=== PATIENT | male | born 1965 | race African-American/Black ===

== ENCOUNTER 2017-06-04 16:43 | Inpatient (IN) | payer SELFPAY ==
--- NOTE | 2017-06-04 17:30 | CT ---
CT HEAD NONCONTRAST: Indication: altered mental status, stroke like symptoms. FINDINGS: There is a prominent sized parenchymal hematoma of the left basal ganglia region. There is slight deg ree of rightward midline shift on the basis of a few mm with effacement of the left lateral ventricle . IMPRESSION: Acute parenchymal hematoma centered at the left basal ganglia, likely related to a hypertensive hemor rhage. Telephone called placed to Kal Bell at 1710 hours, 06-04-17. POS: [facility]
[2017-06-04] MEDS ORDERED: niCARdipine HCl 25 MG in Sodium Chloride 0.9% 250 ML 240 ML IVPB SCH (17:45)
[2017-06-04 17:50] LABS: Mean Corpuscular HGB CONC 33.2 g/dL (32.0-36.0); Mean Corpuscular Volume 99.4 fl (80.0-94.0); Platelet Count 183 thou/uL (130-400); RBC Distribution Width 12.4 % (11.5-14.5); Red Blood Cell (RBC) Count 4.53 mill/uL (4.70-6.10); White Blood Cell (WBC) Count 13.1 thou/uL (4.8-10.8)
[2017-06-04 17:56] LABS: PTT 29.5 SEC (22.9-36.1); Prothrombin Time 13.6 SEC (12.0-14.7)
[2017-06-04] MEDS ORDERED: niCARdipine 20MG in NaCl 200 ML BAG IVPB PRN (18:00)
[2017-06-04] MEDS ORDERED: Ondansetron HCl/PF 4 MG/2 ML Vial IVP PRN (18:00)
[2017-06-04] MEDS ORDERED: Acetaminophen 650 MG Suppository PR PRN (18:04)
[2017-06-04] MEDS ORDERED: Morphine 4 MG/ML Carpuject SLOW IVP PRN (18:04)
[2017-06-04 18:06] LABS: Band 6 % (5-11); Lymphocytes 11 % (21-51); MDiff Complete? YES; Monocytes 6 % (0-10); Neutrophil 77 % (42-75); PLT Morphology Comment Appears Adequate; RBC Morphology Normal
[2017-06-04 18:19] LABS: CKMB 3.6 ng/mL (0-6.6); Troponin I 0.013 ng/mL (< 0.028)
--- NOTE | 2017-06-04 18:38 | PDOC.PN ---
- Subjective Encounter Start Date: 06/04/17 Encounter Start Time: 18:00 -: non-verbal Patient is seen in the ER, asked by Dr. Salmon, PATIENT presented with intraparenchymal bled rt pareital area, patient was found unconsiuous at home with urinary and bowel incontinenece today around 3 pM when checked by his Cousin, Patient has knonw h/o Alchol abuse and did drink a bottle of beer, he has h/o HTN but doesnt take them regularly, Discussed with Daughters and sister at bedside. 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 - Objective MAR Reviewed: Yes Result Diagrams: 06/04/17 17:44 Radiology Reviewed by me: Yes (Right parenchymal bleed) EKG Reviewed by me: Yes Phys Exam - Physical Examination HEENT: PERRLA, moist MMs, sclera anicteric Pt has Tounge deviation to Right side when protruded. Neck: no nodes, no JVD Respiratory: no wheezing, no rales, clear to auscultation bilateral Cardiovascular: RRR, no significant murmur Gastrointestinal: soft, non-tender Musculoskeletal: no edema, pulses present Focal deficits noted in 12th cranial never Toung deviation to right, Psychiatric: normal affect Skin: no rash Dx/Plan (1) Seizure in response to acute event Code(s): R56.9 - UNSPECIFIED CONVULSIONS Status: Acute Comment: Patient seizure is from bleed, will Start Prophylactic Kepra 500mg BID, and Recommand Consulting Neurology. seizure likely from Bleed or He could have withdrawl seizures from Alchol. pt on Ativan for seizures. (2) Alcohol abuse Code(s): F10.10 - ALCOHOL ABUSE, UNCOMPLICATED Status: Acute Comment: Will start patient on Thiamine 100mg IV daily and folic acid 1 mg IV daily (3) Acute intracerebral hemorrhage Code(s): I61.9 - NONTRAUMATIC INTRACEREBRAL HEMORRHAGE, UNSPECIFIED Status: Acute Comment: Patient is managed by Dr. Salmon from Neurosurgery, plan to Repeat CT in Am. (4) Uncontrolled hypertension Code(s): I10 - ESSENTIAL (PRIMARY) HYPERTENSION Status: Acute Comment: Pt is started on nicardipine Drip to keep Systolic >160 < 180 (5) Acute encephalopathy Code(s): G93.40 - ENCEPHALOPATHY, UNSPECIFIED Status: Acute Comment: Likely from Stroke/ Alchol wihtdrawl. (6) Aphasia Code(s): R47.01 - APHASIA Status: Acute Comment: Will need Spech evalaution and keep pt NPO, high risk for Aspiration. - Plan cont current plan of care, plan discussed w/ family, speech therapy, DVT proph w /SCDs * . - Discharge Day Encounter end time: 18:50 (45 min of Critical care time) Review of Systems - Review of Systems Constitutional: negative: fever, chills, sweats, weakness, malaise, other Eyes: negative: Pain, Vision Change, Conjunctivae Inflammation, Eyelid Inflammation, Redness, Other ENT: negative: Ear Pain, Ear Discharge, Nose Pain, Nose Discharge, Nose Congestion, Mouth Pain, Mouth Swelling, Throat Pain, Throat Swelling, Other Respiratory: negative: Cough, Dry, Shortness of Breath, Hemoptysis, SOB with Excertion, Pleuritic Pain, Sputum, Wheezing Cardiovascular: negative: chest pain, palpitations, orthopnea, paroxysmal nocturnal dyspnea, edema, light headedness, other Musculoskeletal: negative: Neck Pain, Shoulder Pain, Arm Pain, Back Pain, Hand Pain, Leg Pain, Foot Pain, Other Neurological: Incoordination, Change in Speech, Confusion - Medications/Allergies Allergies/Adverse Reactions: Allergies Allergy/AdvReac Type Severity Reaction Status Date / Time No Known Allergies Allergy Unverified 06/04/17 17:32 Medications: Current Medications Acetaminophen (Tylenol) 650 mg TN Q4H PRN PRN Reason: Headache/Fever or Pain Famotidine (Pepcid) 20 mg SLOW IVP Q12HR YARED Sodium Chloride (Normal Saline 0.9%) 1,000 mls @ 80 mls/hr IV .[id number] YARED Nicardipine HCl 25 mg/ Sodium (Chloride) 250 mls @ 0 mls/hr IVPB INF PRN; Protocol; Titrate PRN Reason: For SBP > 150 or DBP > 90 Labetalol HCl (Normodyne) 10 mg SLOW IVP Q2H PRN PRN Reason: SBP > 150 or DBP > 90 Morphine Sulfate (Morphine) 2 mg SLOW IVP Q4H PRN PRN Reason: Pain Ondansetron HCl (Zofran) 4 mg IVP BIDPRN PRN PRN Reason: Nausea/Vomiting Sodium Chloride (Flush - Normal Saline) 10 ml IVF PRN PRN PRN Reason: Saline Flush
[2017-06-04] MEDS ORDERED: Lorazepam 2 MG/ML VIAL ONE (19:07)
--- NOTE | 2017-06-04 19:07 | RAD ---
PORTABLE AP CHEST RADIOGRAPH: Date: 06-04-17 History: Altered mental status. FINDINGS: Cardiac silhouette and pulmonary vasculature are within normal limits for portable technique. Broncho vascular markings are accentuated by shallow depth of inspiration and portable technique. Lungs are o therwise clear. Osseous structures are intact. IMPRESSION: No acute cardiopulmonary process. POS: [facility]
[2017-06-04 19:14] LABS: Albumin 4.6 g/dL (3.5-5.0)
[2017-06-04 19:15] LABS: Calcium 10.8 mg/dL (7.8-10.44); Chloride 101 mmol/L (98-107); Potassium 3.6 mmol/L (3.5-5.1); Sodium 143 mmol/L (136-145)
[2017-06-04 19:16] LABS: Glucose 126 mg/dL (70-105); Protein, Total 8.6 g/dL (6.0-8.3)
[2017-06-04 19:17] LABS: Anion Gap 25 mmol/L (10-20); Carbon Dioxide 21 mmol/L (22-29)
[2017-06-04 19:18] LABS: Bilirubin, Total 1.6 mg/dL (0.2-1.2)
[2017-06-04 19:19] LABS: Alcohol Less than 10 mg/dL (Less than 10); Alkaline Phosphatase 68 U/L (40-150); Calc. Creatinine Clearance 0 mL/min (70-130); Estimated GFR-MDRD Greater than 90
[2017-06-04 19:21] LABS: AST (SGOT) 57 U/L (5-34); BUN (Urea Nitrogen) 13 mg/dL (8.4-25.7)
[2017-06-04 19:22] LABS: ALT (SGPT) 41 U/L (8-55); Acetaminophen Less than 6.0 mcg/mL (10.0-30.0); CK (CPK) 739 U/L (30-200); Salicylate Less than 8.0 mg/dL (15.0-30.0)
[2017-06-04] MEDS: Sodium Chloride 0.9% 1,000 ML IV SCH (20:00)
[2017-06-04] MEDS: Famotidine/PF 20 mg/2ml Vial SLOW IVP SCH (20:31)
--- NOTE | 2017-06-04 20:52 | ER ---
DATE OF SERVICE: 06/04/2017 Please refer the patient's electronic medical record for further details of his visit. In summary, the patient was found unresponsive with difficulty moving and standing by a family member earlier this afternoon. He was last seen normal yesterday by another family member, and spoke on th e phone early this morning and sounded to be in his usual state of health at that time. His family r eports no recent illness or medical issues. He stated that he has a chronic alcoholic. He has a history of 1 seizure approximately 1-2 years ago, with no witnessed seizure activity today. The patient has had difficulty moving his right upper and lower extremities, and was found with emes is on the floor around him. He did not vomit while in the emergency department. On my evaluation, the patient is awake and alert, unable to answers questions beyond yes and no quest ions. He has garbled speech with expressive aphasia, but answers yes when asked if he understands wh at is going on. He is able to follow some simple commands, though has difficulty with more complex i nstructions. The patient was mildly hypertensive on arrival, and plan to treat his blood pressure with an IV Carde ne drip. CT scanning reveals intraparenchymal hemorrhage on the left with minimal midline shift. I discussed this case with JULES Mckenzie, of the Neurosurgical Service, who agrees with plan for ICU admiss ion. The patient is in guarded condition at the time of admission. His family is aware of findings and plan, all the questions have been answered at this point. He is protecting his airway and does n ot require intubation at this time. He is not taking any blood thinners. His prognosis is quite gua rded.
[2017-06-04] MEDS: niCARdipine HCl 25 MG in Sodium Chloride 0.9% 250 ML 240 ML IVPB PRN (20:54)
[2017-06-04 22:11] LABS: Lactic Acid 1.3 mmol/L (0.5-2.2)
--- NOTE | 2017-06-04 22:13 | HP ---
ATTENDING PHYSICIAN: Jigar Salmon MD HISTORY OF PRESENT ILLNESS: The patient is a 52-year-old -[place] male with a past medical history of alcoholism, hypertension non compliant with medications who presented to the emergency department per EMS after being found down by his family at 1500 hours today. Family reports that they spoke to him earlier this morning around 7:00 a.m. and he sounded normal at that time. At noon, family members attempted to go by his home, but the patient did not answer the door or the phone. They were able to get into his home around 1500 hours with a marroquin from another family member, which is when they found the patient down. It is unknown how long the patient had been down. The patient had thrown up nearby where he was found down. He was found to have right-sided weakness upon the family's arrival as well as slurred speech. The family contacted EMS and the patient was brought to the emergency department for further evaluation. CT head was done on arrival, which revealed a moderate- sized right-sided intraparenchymal hemorrhage with a small amount of midline shift from left to right. Therefore, the Neurosurgery Service was consulted. I saw the patient in the emergency department at the bedside. He was oriented to person, place, time; although he had slurred speech. Left-sided facial droop was appreciated on my exam. His pupils were equal and reactive to light. He had weakness to the right upper and right lower extremities. His vital signs were stable, although blood pressure was elevated at 155/110 while I was in the room. PAST MEDICAL HISTORY: Alcoholism with history of alcohol-related seizure in the past, hypertension, noncompliant on medication. FAMILY HISTORY: Noncontributory. SOCIAL HISTORY: The patient lives at home. Known alcoholism. ALLERGIES: The patient has no known drug allergies. REVIEW OF SYSTEMS: Per HPI. PHYSICAL EXAMINATION: VITAL SIGNS: Heart rate was 115, blood pressure 155/110, respiratory rate is 20 , temperature 100.1 Fahrenheit. CONSTITUTIONAL: The patient was awake, alert, following commands. HEAD: Normocephalic and atraumatic. Left-sided facial droop was appreciated. EYES: PERRLA. Extraocular movements are intact. No gaze deviation was appreciated. ENT: Oral mucosa pink, intact, and moist. NECK: Supple, nontender to palpation. No meningismus or nuchal rigidity. CARDIAC: Regular rate and rhythm. LUNGS: The patient was breathing comfortably with symmetric chest expansion. No evidence of dyspnea. MUSCULOSKELETAL: The patient has good muscle tone to bilateral upper and lower extremities. No obvious deformities. Peripheral pulses were symmetric. NEUROLOGIC: The patient is A and O x4. Left-sided facial droop. Expressive aphasia. Right upper extremity weakness with flaccid paralysis. Right lower extremity weakness, 3/5. ASSESSMENT: Acute intraparenchymal hemorrhage, likely related to alcoholism and elevated blood pressure. PLAN: We will plan to admit to the ICU with q.1 hour neuro checks. Head of the bed will be elevated to 30 degrees. We will begin a Cardene drip and titrate to a systolic blood pressure of less than 140 as the goal. We will plan to repeat head CT in the morning for further evaluation. I have discussed this plan with the hospitalist and they will also assist with medical management. I have also discussed this plan with Dr. Salmon who is in agreement. Please reach out to Neurosurgery Service for additional questions or concerns. STEFANIA
[2017-06-05] MEDS: niCARdipine HCl 25 MG in Sodium Chloride 0.9% 250 ML 240 ML IVPB PRN (00:32)
[2017-06-05 05:15] LABS: #Lymphocytes 1.3 thou/uL (1.20-3.40); #Monocytes 1.6 thou/uL (0.11-0.59); %Basophils 0.1 % (0.0-1.0); %Lymphocytes 8.9 % (21.0-51.0); %Monocytes 10.5 % (0.0-10.0); %Neutrophils 80.5 % (42.0-75.0); Hemoglobin 14.1 g/dL (14.0-18.0); Mean Corpuscular HGB CONC 34.2 g/dL (32.0-36.0); Mean Corpuscular Hemoglobin 34.3 pg (27.0-31.0); Mean Platelet Volume 8.7 fL (7.4-10.4); Platelet Count 167 thou/uL (130-400); RBC Distribution Width 12.3 % (11.5-14.5); Red Blood Cell (RBC) Count 4.12 mill/uL (4.70-6.10); White Blood Cell (WBC) Count 14.9 thou/uL (4.8-10.8)
[2017-06-05] MEDS ORDERED: niCARdipine HCl 50 MG in Sodium Chloride 0.9% 250 ML 230 ML IVPB PRN (05:15)
[2017-06-05 05:16] LABS: Anion Gap 19 mmol/L (10-20); BUN (Urea Nitrogen) 17 mg/dL (8.4-25.7); Calc. Creatinine Clearance 101 mL/min (70-130); Calcium 9.5 mg/dL (7.8-10.44); Carbon Dioxide 22 mmol/L (22-29); Chloride 106 mmol/L (98-107); Estimated GFR-MDRD 87; Glucose 104 mg/dL (70-105); Potassium 3.5 mmol/L (3.5-5.1); Sodium 143 mmol/L (136-145)
[2017-06-05] MEDS: Sodium Chloride 0.9% 1,000 ML IV SCH ×2 (07:59→10:07)
[2017-06-05] MEDS: Labetalol HCl 100 MG/20 ML VIAL SLOW IVP PRN (08:00)
[2017-06-05] MEDS ORDERED: Lidocaine Viscous Sol 2% 15 ml UD Cup ONE (08:39)
[2017-06-05] MEDS ORDERED: FLU VACC QS2017-18 36 mo. & older 0.5 ML SYRINGE IM ONE (09:00)
[2017-06-05 09:08] LABS: Bilirubin Moderate (Negative); Blood, Urine Small (Negative); Clarity CLOUDY (Clear); Glucose, Urine (Dipstick) Negative (Negative); Leukocyte Small (Negative); Nitrite Negative (Negative); Protein, Urine (Dipstick) 300 mg/dL (Neg-Trace); pH, Urine 6.5 (5.0-9.0)
[2017-06-05 09:15] LABS: Squamous Epithelial 0-3 HPF (0-3); WBC/HPF 0-3 HPF (0-3)
[2017-06-05 09:16] LABS: Bacteria/HPF 1+ HPF (None Seen); Hyaline Casts/LPF NONE SEEN LPF (0-3 Hyaline); Renal Epithelial None Seen HPF (0-3)
--- NOTE | 2017-06-05 09:29 | CT ---
PRELIMINARY REPORT/[facility]/EMERGENCY AFTER HOURS PROCEDURE: EXAM: CT Head Without Intravenous Contrast EXAM DATE/TIME: Exam ordered 06/05/2017 3:44 AM CLINICAL HISTORY: 52 years old, male; Condition or disease; Other: Hemorrhage; Patient HX: F/u intracerebral hemorrhagi c stroke TECHNIQUE: Axial computed tomography images of the head/brain without intravenous contrast. COMPARISON: CT Brain WO Con 2017-06-04 17:07 FINDINGS: Brain: Stable 5.8 cm acute left basal ganglia intraparenchymal hematoma, presumably representing a hy pertensive hemorrhage. No significant white matter disease. Midline shift: 2 mm rightward midline shift. Ventricles: Unremarkable. No ventriculomegaly. Bones/joints: Unremarkable. No acute fracture. Soft tissues: Unremarkable. Sinuses: Unremarkable as visualized. No acute sinusitis. Mastoid air cells: Unremarkable as visualized. No mastoid effusion. Other findings: Generalized volume loss. IMPRESSION: 1. Stable 5.8 cm acute left basal ganglia intraparenchymal hematoma, presumably representing a hypert ensive hemorrhage. 2. 2 mm rightward midline shift. Thank you for allowing us to participate in the care of your patient. Dictated and Authenticated by: Pérez Fitzgerald MD 06/05/2017 3:59 AM Central Time ([place] & [place]) FINAL REPORT HEAD CT WITHOUT CONTRAST: DATE: 06/05/17. COMPARISON: 06/04/17. HISTORY: Reevaluate intraaxial hemorrhage. FINDINGS: I agree with the preliminary [facility] report. There is a stable intraaxial hemorrhage measuring up to 5 .5 cm in the region of the basal ganglia on the left. There is mild [id number] midline shift lawrence uring in the 2-3 mm range. Imaged paranasal sinuses/mastoid air cells are well aerated. No displace d calvarial fracture. No new hemorrhage. IMPRESSION: Stable intraaxial hemorrhage centered in the left basal ganglia with minimal rightward midline shift. POS: [facility]
[2017-06-05] MEDS ORDERED: Lidocaine Viscous Sol 2% 15 ml UD Cup FS SCH (09:30)
[2017-06-05] MEDS: Famotidine/PF 20 mg/2ml Vial SLOW IVP SCH ×2 (10:07→20:56)
--- NOTE | 2017-06-05 12:20 | PDOC.PN ---
- Subjective Encounter Start Date: 06/05/17 Encounter Start Time: 12:19 Subjective: not able to talk.apperas sleepy -: family at bedisde.no improvement or worsening in R parasis/dysarthria - Objective MAR Reviewed: Yes Vital Signs & Weight: Vital Signs (12 hours) Temp Pulse Resp BP Pulse Ox 06/05/17 08:00 98.9 F 122 H 18 125/84 100 06/05/17 03:00 99.4 F Weight Admit Weight 194 lb 0.108 oz Weight 195 lb 5.273 oz Most Recent Monitor Data Heart Rate from ECG 98 NIBP 135/99 NIBP BP-Mean 112 Respiration from ECG 20 SpO2 100 I&O: 06/04/17 06/05/17 06/06/17 06:59 06:59 06:59 Intake Total 1129 100 Output Total 10 Balance 1129 90 Result Diagrams: 06/05/17 04:43 06/05/17 04:43 Additional Labs: Microbiology 06/04/17 17:44 Venous blood - Left Arm Blood Culture - Preliminary Specimen has been received and culture in progress. No Growth to date. 06/04/17 17:44 Venous blood - Left Arm Blood Culture - Preliminary Specimen has been received and culture in progress. No Growth to date. Phys Exam - Physical Examination Constitutional: NAD awake but sleepy HEENT: PERRLA, moist MMs, sclera anicteric, oral pharynx no lesions Neck: no JVD Respiratory: no wheezing, no rales, no rhonchi, clear to auscultation bilateral Cardiovascular: RRR, no significant murmur Gastrointestinal: soft, non-tender, no distention, positive bowel sounds Musculoskeletal: no edema, pulses present R hemiparesis,expressive aphasia,Left facial droop Psychiatric: normal affect Skin: no rash Dx/Plan (1) Acute intracerebral hemorrhage Code(s): I61.9 - NONTRAUMATIC INTRACEREBRAL HEMORRHAGE, UNSPECIFIED Status: Acute Comment: Patient is managed by Dr. Salmon from Neurosurgery, Repeat CT shows stable bleed (2) Acute encephalopathy Code(s): G93.40 - ENCEPHALOPATHY, UNSPECIFIED Status: Acute Comment: Likely from Stroke/ Alchol wihtdrawl.Improving (3) Alcohol abuse Code(s): F10.10 - ALCOHOL ABUSE, UNCOMPLICATED Status: Acute Comment: on Thiamine 100mg IV daily and folic acid 1 mg IV daily (4) Aphasia Code(s): R47.01 - APHASIA Status: Acute Comment: Spech evalaution and keep pt NPO, high risk for Aspiration. (5) Seizure in response to acute event Code(s): R56.9 - UNSPECIFIED CONVULSIONS Status: Acute Comment: Patient seizure is from bleed, will Started Prophylactic Kepra 500mg BID, and Recommand Consulting Neurology. seizure likely from Bleed or He could have withdrawl seizures from Alchol. pt on Ativan for seizures. (6) Uncontrolled hypertension Code(s): I10 - ESSENTIAL (PRIMARY) HYPERTENSION Status: Acute Comment: Off of Nicardipine drip.PRN labetalol - Plan strong catheter, PT/OT, speech therapy, respiratory therapy, DVT proph w/SCDs Stable ICH .NS following.BP improved.add daily BB etc.monitor. -: OK to transfer to stroke w tele.cont OT,PT,SALES OFFICE MANAGER eval. -: monitor for ETOH withdrawl.prophylactic Anti-seizure meds -: prn ativan,though it cam increase drowsines. -: guarded prognosis.am labs * . Review of Systems - Review of Systems Other: Unable to obtain w certainty due to Broca's aphasia - Medications/Allergies Allergies/Adverse Reactions: Allergies Allergy/AdvReac Type Severity Reaction Status Date / Time No Known Allergies Allergy Unverified 06/04/17 17:32 Medications: Current Medications Acetaminophen (Tylenol) 650 mg CA Q4H PRN PRN Reason: Headache/Fever or Pain Last Admin: 06/04/17 22:45 Dose: 650 mg Famotidine (Pepcid) 20 mg SLOW IVP Q12HR [facility] Last Admin: 06/05/17 10:07 Dose: 20 mg Sodium Chloride (Normal Saline 0.9%) 1,000 mls @ 80 mls/hr IV .[id number] YARED Last Admin: 06/05/17 10:07 Dose: 1,000 mls Levetiracetam 500 mg/ Device 100 mls @ 200 mls/hr IVPB BID [facility] Last Admin: 06/05/17 10:07 Dose: 100 mls Thiamine HCl 100 mg/ Sodium (Chloride) 51 mls @ 100 mls/hr IVPB Q24HR [facility] Last Admin: 06/04/17 20:25 Dose: 51 mls Nicardipine HCl 50 mg/ Sodium (Chloride) 250 mls @ 0 mls/hr IVPB INF PRN; Protocol; Titrate PRN Reason: For SBP > 150 or DBP > 90 Labetalol HCl (Normodyne) 10 mg SLOW IVP Q2H PRN PRN Reason: SBP > 150 or DBP > 90 Last Admin: 06/05/17 08:00 Dose: 10 mg Morphine Sulfate (Morphine) 2 mg SLOW IVP Q4H PRN PRN Reason: Pain Ondansetron HCl (Zofran) 4 mg IVP BIDPRN PRN PRN Reason: Nausea/Vomiting Last Admin: 06/04/17 20:44 Dose: 4 mg Sodium Chloride (Flush - Normal Saline) 10 ml IVF PRN PRN PRN Reason: Saline Flush Tamsulosin HCl (Flomax) 0.4 mg PO DAILY YARED
--- NOTE | 2017-06-05 14:13 | CON ---
DATE OF CONSULTATION: 06/05/2017 REFERRING PHYSICIAN: Benito Adrian D.O. REASON FOR CONSULTATION: History of incontinence, difficult Jeong catheter placement. HISTORY OF PRESENT ILLNESS: Mr. Diaz is a 52-year-old -Citizen Of [place] male, admitted via the emergency room and currently in ICU due to acute hemorrhage bleed. The patient has history of chronic alcoholism, prior history of seizures. Two sisters at bedside. The patient is currently unable to provide pertinent history, limited due to mental status changes due to acute right- sided intraparenchymal hemorrhage. Patient has right-sided neurologic deficit secondary to above. Per review of the ER notes, he has been incontinent of stool and urine on presentation. 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 He denies other illicit drug use. He lives in a private home. He does subjectively state that his urinary flow has been slow in the past and denies prior urologic assessment. Uncle with history of prostate cancer diagnosed and treated. Father without history of prostate cancer per family. I did ask the nursing staff to obtain a post-void residual after his incontinence episode which has been minimal. Voided urine is concentrated yellow. Urinalysis and culture has been sent per my request. PAST MEDICAL HISTORY: 1. History of chronic alcoholism. 2. History of alcohol-related seizures. 3. Hypertension with noncompliance. FAMILY HISTORY: Uncle with history of prostate cancer. SOCIAL HISTORY: Lives in a private residence with history of chronic alcoholism , disabled huber. ALLERGIES: No known drug allergies. REVIEW OF SYSTEMS: 10-point review of systems as above, otherwise noncontributory. PHYSICAL EXAMINATION: VITAL SIGNS: Stable. T-max of 100, T-current is 98.9, heart rate 98, blood pressure 135/99, 100% saturation and I's and O's is incontinent of stool and urine. HEENT: Grossly unremarkable, patient is oriented x1. HEART: Regular. LUNGS: Clear. ABDOMEN: Soft, nontender, nondistended. No suprapubic tenderness is appreciated. GENITOURINARY: Demonstrates circumcised phallus, meatus is grossly unremarkable. Testes is descended with no evidence of intratesticular mass. Digital rectal exam does demonstrate normal sphincter tone. Prostate volume is approximately 35 to greater than 40 grams, somewhat limited. EXTREMITIES: No cyanosis, clubbing or edema. NEUROLOGIC: Grossly, he does have focal weakness at his right upper and lower extremities. Sensation is difficult to decipher. The patient's speech is somewhat slurred. BEDSIDE PROCEDURE: The patient's genital area was formally prepped and draped and a 16-E[place] Coude catheter was able to be passed There was some hang up at the level of the bladder neck prostate; however, passed without difficulty. There was no significant postvoid residual. Catheter was flushed demonstrating proper placement. As he has no significant residual, catheter passed without obvious issues, I did remove it subsequently. PERTINENT LABORATORY DATA: White count is 14, hemoglobin 14, platelet 167. Coagulation profile is within normal limits. Creatinine is 1.0. Voided urinalysis demonstrates 4-6 rbcs, 300 protein, 88 ketones and 0-3 wbcs, 0-3 epithelials, 1+ bacteria. Plasma alcohol was less than 10. IMPRESSION AND PLAN: 1. Mr. Diaz is a 52-year-old -Citizen Of [place] male with history of chronic alcoholism. 2. History of hypertension, noncompliant, currently on Cardizem drip in ICU setting. 3. Currently admitted for acute intraparenchymal hemorrhagic bleed. Neurosurgery is following. 4. Stool and urine incontinence secondary to acute neurologic event. 5. Incidental microscopic hematuria, I did inform patient and sisters at bedside that he will undergo elective workup as an outpatient including upper tract imaging, flexible cystoscopy. 6. Urge incontinence, with difficult Jeong catheter placement per nursing staff. Urge incontinence is not an indication for indwelling urethral Jeong catheter. I do expect the patient with acute stroke to have voiding issues, typically manifest with urge incontinence due to acute cerebrovascular accident. The patient is not in retention, he does not require an indwelling urethral Jeong catheter for incontinence/urge as he is not in retention. Moreover, indwelling Jeong catheter for Mr. Diaz is high risk for traumatic Jeong catheter removal. I do not recommend indwelling urethral Jeong catheter, unless the patient has significant retention issues which he does not. initiate Flomax due to history of slow urinary stream. He may start Flomax when he is approved to have oral medication as he is currently n.p.o. He may follow up with me once disposition is finalized as an elective followup. will follow p.r.nEric QIUD
[2017-06-06] MEDS: Sodium Chloride 0.9% 1,000 ML IV SCH ×2 (02:31→23:53)
[2017-06-06 05:31] LABS: #Basophils 0.1 thou/uL (0.0-0.2); #Lymphocytes 1.5 thou/uL (1.20-3.40); #Monocytes 1.2 thou/uL (0.11-0.59); #Neutrophils 7.2 thou/uL (1.40-6.50); %Basophils 0.8 % (0.0-1.0); %Eosinophils 0.2 % (0.0-10.0); %Lymphocytes 15.3 % (21.0-51.0); %Monocytes 11.8 % (0.0-10.0); %Neutrophils 71.9 % (42.0-75.0); Hemoglobin 12.2 g/dL (14.0-18.0); Mean Corpuscular HGB CONC 33.1 g/dL (32.0-36.0); Mean Corpuscular Hemoglobin 33.1 pg (27.0-31.0); Mean Platelet Volume 8.4 fL (7.4-10.4); Platelet Count 134 thou/uL (130-400); RBC Distribution Width 12.2 % (11.5-14.5); Red Blood Cell (RBC) Count 3.67 mill/uL (4.70-6.10)
[2017-06-06 06:01] LABS: Anion Gap 12 mmol/L (10-20); BUN (Urea Nitrogen) 12 mg/dL (8.4-25.7); Calc. Creatinine Clearance 135 mL/min (70-130); Calcium 8.8 mg/dL (7.8-10.44); Carbon Dioxide 25 mmol/L (22-29); Chloride 109 mmol/L (98-107); Estimated GFR-MDRD Greater than 90; Glucose 100 mg/dL (70-105); Potassium 3.5 mmol/L (3.5-5.1); Sodium 142 mmol/L (136-145)
[2017-06-06] MEDS: Tamsulosin HCl 0.4 MG CAP PO SCH (09:22)
[2017-06-06] MEDS: Famotidine/PF 20 mg/2ml Vial SLOW IVP SCH ×2 (09:22→21:01)
[2017-06-06] MEDS ORDERED: Amlodipine 10 MG TAB PO SCH (09:30)
--- NOTE | 2017-06-06 12:56 | PDOC.PN ---
- Subjective Encounter Start Date: 06/06/17 Encounter Start Time: 12:54 Subjective: working w PT,still w eakness and aphasia - Objective MAR Reviewed: Yes Vital Signs & Weight: Vital Signs (12 hours) Temp Pulse Resp BP Pulse Ox 06/06/17 11:27 99.1 F 77 18 137/93 H 98 06/06/17 09:22 71 06/06/17 08:00 99.2 F 71 20 93 L 06/06/17 07:46 99.2 F 71 20 147/103 H 93 L 06/06/17 03:03 99.2 F 96 18 128/102 H 97 Weight Admit Weight 194 lb 0.108 oz Weight 224 lb 8 oz Most Recent Monitor Data Heart Rate from ECG 107 NIBP 149/97 NIBP BP-Mean 120 Respiration from ECG 18 SpO2 99 I&O: 06/05/17 06/06/17 06/07/17 06:59 06:59 06:59 Intake Total 1129 1638 Output Total 410 Balance 1129 1228 Result Diagrams: 06/06/17 04:56 06/06/17 04:56 Radiology Reviewed by me: Yes (Brain CT -stable ICH w minimal shift) Phys Exam - Physical Examination Constitutional: NAD HEENT: PERRLA, moist MMs, sclera anicteric, oral pharynx no lesions Neck: no nodes, no JVD, supple, full ROM Respiratory: no wheezing, no rales, no rhonchi, clear to auscultation bilateral Cardiovascular: RRR, no significant murmur Gastrointestinal: soft, non-tender, no distention, positive bowel sounds Musculoskeletal: no edema, pulses present Neurological: normal sensation R hemiparesis.Aphasia Psychiatric: normal affect, A&O x 3 Skin: no rash Dx/Plan (1) Acute intracerebral hemorrhage Code(s): I61.9 - NONTRAUMATIC INTRACEREBRAL HEMORRHAGE, UNSPECIFIED Status: Acute Comment: Patient is managed by Dr. Salmon from Neurosurgery, Repeat CT shows stable bleed (2) Acute encephalopathy Code(s): G93.40 - ENCEPHALOPATHY, UNSPECIFIED Status: Acute Comment: Likely from Stroke/ Alchol wihtdrawl.Improving (3) Alcohol abuse Code(s): F10.10 - ALCOHOL ABUSE, UNCOMPLICATED Status: Acute Comment: on Thiamine 100mg IV daily and folic acid 1 mg IV daily (4) Aphasia Code(s): R47.01 - APHASIA Status: Acute Comment: Spech evalaution and keep pt NPO, high risk for Aspiration. (5) Seizure in response to acute event Code(s): R56.9 - UNSPECIFIED CONVULSIONS Status: Acute Comment: Patient seizure is from bleed, will Started Prophylactic Kepra 500mg BID, and Recommand Consulting Neurology. seizure likely from Bleed or He could have withdrawl seizures from Alchol. pt on Ativan for seizures. (6) Uncontrolled hypertension Code(s): I10 - ESSENTIAL (PRIMARY) HYPERTENSION Status: Acute Comment: Off of Nicardipine drip.PRN labetalol - Plan DVT proph w/SCDs add Norvasc for BP control.cont PRN meds -: monitor for DT's/ETOH withdrawl. -: HD stable -: Rehab eval. -: repeat Brain CT in 4 weeks w OP NS follow up. * . Review of Systems - Review of Systems Other: difficult to obtain d/t aphsia - Medications/Allergies Allergies/Adverse Reactions: Allergies Allergy/AdvReac Type Severity Reaction Status Date / Time No Known Allergies Allergy Unverified 06/04/17 17:32 Medications: Current Medications Acetaminophen (Tylenol) 650 mg [place] Q4H PRN PRN Reason: Headache/Fever or Pain Last Admin: 06/04/17 22:45 Dose: 650 mg Amlodipine Besylate (Norvasc) 10 mg PO DAILY REPLACED BY [facility] Famotidine (Pepcid) 20 mg SLOW IVP Q12HR REPLACED BY [facility] Last Admin: 06/06/17 09:22 Dose: 20 mg Sodium Chloride (Normal Saline 0.9%) 1,000 mls @ 80 mls/hr IV .[id number] REPLACED BY [facility] Last Admin: 06/06/17 02:31 Dose: 1,000 mls Levetiracetam 500 mg/ Device 100 mls @ 200 mls/hr IVPB BID REPLACED BY [facility] Last Admin: 06/06/17 09:20 Dose: 100 mls Thiamine HCl 100 mg/ Sodium (Chloride) 51 mls @ 100 mls/hr IVPB Q24HR REPLACED BY [facility] Last Admin: 06/05/17 22:03 Dose: 51 mls Labetalol HCl (Normodyne) 10 mg SLOW IVP Q2H PRN PRN Reason: SBP > 150 or DBP > 90 Last Admin: 06/05/17 08:00 Dose: 10 mg Morphine Sulfate (Morphine) 2 mg SLOW IVP Q4H PRN PRN Reason: Pain Ondansetron HCl (Zofran) 4 mg IVP BIDPRN PRN PRN Reason: Nausea/Vomiting Last Admin: 06/04/17 20:44 Dose: 4 mg Sodium Chloride (Flush - Normal Saline) 10 ml IVF PRN PRN PRN Reason: Saline Flush Tamsulosin HCl (Flomax) 0.4 mg PO DAILY REPLACED BY [facility] Last Admin: 06/06/17 09:22 Dose: 0.4 mg
[2017-06-07] MEDS: Amlodipine 10 MG TAB PO SCH (10:23)
[2017-06-07] MEDS: Famotidine/PF 20 mg/2ml Vial SLOW IVP SCH ×3 (10:24→21:45)
[2017-06-07] MEDS: Sodium Chloride 0.9% 1,000 ML IV SCH ×2 (10:24→12:48)
[2017-06-07] MEDS: Tamsulosin HCl 0.4 MG CAP PO SCH (10:24)
--- NOTE | 2017-06-07 13:40 | PDOC.PN ---
- Subjective Encounter Start Date: 06/07/17 Encounter Start Time: 13:39 Subjective: nursing called to report changes in mentation -: when seen earleir ,pt was coherent,sitting up in chair w family around -: reported improved speech and R leg strength - Objective MAR Reviewed: Yes Vital Signs & Weight: Vital Signs (12 hours) Temp Pulse Resp BP Pulse Ox 06/07/17 12:00 99.0 F 91 20 123/100 H 99 06/07/17 10:23 70 06/07/17 08:00 99.1 F 70 20 147/95 H 99 06/07/17 04:18 99.3 F 92 16 164/103 H 98 Weight Admit Weight 194 lb 0.108 oz Weight 191 lb 3.2 oz Most Recent Monitor Data Heart Rate from ECG 107 NIBP 149/97 NIBP BP-Mean 120 Respiration from ECG 18 SpO2 99 I&O: 06/06/17 06/07/17 06/08/17 06:59 06:59 06:59 Intake Total 1638 1360 Output Total 410 400 Balance 1228 960 Result Diagrams: 06/06/17 04:56 06/06/17 04:56 Additional Labs: Microbiology 06/04/17 23:45 Urine clean catch Urine Culture - Final NO GROWTH AT 48 HOURS 06/04/17 23:45 Urine clean catch Urine Culture - Preliminary NO GROWTH AT 24 HOURS 06/04/17 17:44 Venous blood - Left Arm Blood Culture - Preliminary Specimen has been received and culture in progress. No Growth to date. 06/04/17 17:44 Venous blood - Left Arm Blood Culture - Preliminary Specimen has been received and culture in progress. No Growth to date. 06/04/17 17:44 Venous blood - Left Arm Blood Culture - Preliminary NO GROWTH AT 48 HOURS 06/04/17 17:44 Venous blood - Left Arm Blood Culture - Preliminary NO GROWTH AT 48 HOURS Laboratory Tests 06/04/17 06/04/17 06/04/17 17:44 17:44 21:45 Lactic Acid 2.9 H 1.3 TSH 3rd Generation 0.5984 Phys Exam - Physical Examination Constitutional: NAD sitting up in chair HEENT: PERRLA, moist MMs, sclera anicteric, oral pharynx no lesions Neck: no JVD, supple, full ROM Respiratory: no wheezing, no rales, no rhonchi, clear to auscultation bilateral Cardiovascular: RRR, no significant murmur Gastrointestinal: soft, non-tender, no distention, positive bowel sounds Musculoskeletal: no edema, pulses present R arm paresis.able to move right leg agaianst gravity.Speech improved+droop Psychiatric: normal affect, A&O x 3 Skin: no rash Dx/Plan (1) Acute intracerebral hemorrhage Code(s): I61.9 - NONTRAUMATIC INTRACEREBRAL HEMORRHAGE, UNSPECIFIED Status: Acute Comment: Patient is managed by Dr. Salmon from Neurosurgery, Repeat CT shows stable bleed (2) Acute encephalopathy Code(s): G93.40 - ENCEPHALOPATHY, UNSPECIFIED Status: Resolved Comment: Likely from Stroke/ Alchol wihtdrawl.Improving (3) Alcohol abuse Code(s): F10.10 - ALCOHOL ABUSE, UNCOMPLICATED Status: Acute Comment: on Thiamine 100mg IV daily and folic acid 1 mg IV daily (4) Aphasia Code(s): R47.01 - APHASIA Status: Acute Comment: Spech evalaution.on Pureed diet (5) Seizure in response to acute event Code(s): R56.9 - UNSPECIFIED CONVULSIONS Status: Acute Comment: Patient seizure is from bleed, will Started Prophylactic Kepra 500mg BID, and Recommand Consulting Neurology. seizure likely from Bleed or He could have withdrawl seizures from Alchol. pt on Ativan for seizures. (6) Uncontrolled hypertension Code(s): I10 - ESSENTIAL (PRIMARY) HYPERTENSION Status: Acute Comment: Off of Nicardipine drip.PRN labetalol.Norvasc started - Plan plan discussed w/ family, PT/OT, speech therapy, out of bed/ambulate Will do stat Brain CT for change in neurological status as reportyed later -: cont current management otherwise. -: BP under reasonable control. may need additional med for diastolic HTN -: Rehab eval.Pt uninsured -: frequent neuro checks.OP NS follow up * . Review of Systems - Review of Systems Constitutional: negative: fever, chills, sweats, weakness, malaise, other Respiratory: negative: Cough, Dry, Shortness of Breath, Hemoptysis, SOB with Excertion, Pleuritic Pain, Sputum, Wheezing Cardiovascular: negative: chest pain, palpitations, orthopnea, paroxysmal nocturnal dyspnea, edema, light headedness, other Gastrointestinal: negative: Nausea, Vomiting, Abdominal Pain, Diarrhea, Constipation, Melena, Hematochezia, Other Genitourinary: negative: Dysuria, Frequency, Incontinence, Hematuria, Retention , Other Musculoskeletal: negative: Neck Pain, Shoulder Pain, Arm Pain, Back Pain, Hand Pain, Leg Pain, Foot Pain, Other Neurological: Weakness, Change in Speech. negative: Numbness, Incoordination, Confusion, Seizures, Other - Medications/Allergies Allergies/Adverse Reactions: Allergies Allergy/AdvReac Type Severity Reaction Status Date / Time No Known Allergies Allergy Unverified 06/04/17 17:32 Medications: Current Medications Acetaminophen (Tylenol) 650 mg [place] Q4H PRN PRN Reason: Headache/Fever or Pain Last Admin: 06/04/17 22:45 Dose: 650 mg Amlodipine Besylate (Norvasc) 10 mg PO DAILY [facility] Last Admin: 06/07/17 10:23 Dose: 10 mg Famotidine (Pepcid) 20 mg SLOW IVP Q12HR [facility] Last Admin: 06/07/17 10:24 Dose: 20 mg Levetiracetam 500 mg/ Device 100 mls @ 200 mls/hr IVPB BID [facility] Last Admin: 06/07/17 10:23 Dose: 100 mls Thiamine HCl 100 mg/ Sodium (Chloride) 51 mls @ 100 mls/hr IVPB Q24HR [facility] Last Admin: 06/06/17 21:01 Dose: 51 mls Sodium Chloride (Normal Saline 0.9%) 1,000 mls @ 50 mls/hr IV .Q20H [facility] Last Admin: 06/07/17 10:24 Dose: Not Given Labetalol HCl (Normodyne) 10 mg SLOW IVP Q2H PRN PRN Reason: SBP > 150 or DBP > 90 Last Admin: 06/05/17 08:00 Dose: 10 mg Ondansetron HCl (Zofran) 4 mg IVP BIDPRN PRN PRN Reason: Nausea/Vomiting Last Admin: 06/04/17 20:44 Dose: 4 mg Sodium Chloride (Flush - Normal Saline) 10 ml IVF PRN PRN PRN Reason: Saline Flush Tamsulosin HCl (Flomax) 0.4 mg PO DAILY [facility] Last Admin: 06/07/17 10:24 Dose: 0.4 mg
--- NOTE | 2017-06-07 13:40 | CT ---
CT BRAIN WITHOUT CONTRAST: History: Change in mental status. Comparison: 06-05-17 FINDINGS: There is a size unchanged basal ganglia hemorrhage on the left which measures up to 5.2 cm. Mild vaso genic edema. The midline shift now measures approximately 6 mm, previously approximately 3 mm. Mild e ffacement basilar cistern. No subfalcine herniation. No new areas of hemorrhage. No intraventricular hemorrhage is appreciated. The paranasal sinuses and mastoids are clear. Soft tissues are unremarkable. IMPRESSION: Mild increase in left to right midline shift now measuring 6 mm, previously 3 mm. The size of the int raparenchymal hemorrhage on the left is unchanged. POS: [facility]
[2017-06-08 06:19] LABS: Anion Gap 14 mmol/L (10-20); BUN (Urea Nitrogen) 9 mg/dL (8.4-25.7); Calc. Creatinine Clearance 124 mL/min (70-130); Calcium 9.1 mg/dL (7.8-10.44); Carbon Dioxide 22 mmol/L (22-29); Chloride 106 mmol/L (98-107); Estimated GFR-MDRD Greater than 90; Glucose 87 mg/dL (70-105); Sodium 139 mmol/L (136-145)
[2017-06-08 06:25] LABS: Eosinophils 2 % (0-10); Hemoglobin 12.3 g/dL (14.0-18.0); Lymphocytes 21 % (21-51); MDiff Complete? YES; Mean Corpuscular HGB CONC 32.9 g/dL (32.0-36.0); Mean Corpuscular Hemoglobin 32.8 pg (27.0-31.0); Mean Corpuscular Volume 99.5 fl (80.0-94.0); Mean Platelet Volume 8.6 fL (7.4-10.4); Monocytes 15 % (0-10); Neutrophil 62 % (42-75); Platelet Count 136 thou/uL (130-400); RBC Distribution Width 11.8 % (11.5-14.5); Red Blood Cell (RBC) Count 3.75 mill/uL (4.70-6.10); White Blood Cell (WBC) Count 7.9 thou/uL (4.8-10.8)
[2017-06-08] MEDS: Sodium Chloride 0.9% 1,000 ML IV SCH (06:32)
[2017-06-08] MEDS ORDERED: Potassium Chloride 40 MEQ in Sodium Chloride 0.9% 250 ML 250 ML IVPB SCH (09:00)
[2017-06-08] MEDS ORDERED: Potassium Chloride 40 MEQ in Premix Bag 1 BAG IVPB SCH (09:00)
[2017-06-08] MEDS: Famotidine/PF 20 mg/2ml Vial SLOW IVP SCH ×2 (09:01→20:06)
[2017-06-08] MEDS: Tamsulosin HCl 0.4 MG CAP PO SCH (09:01)
[2017-06-08] MEDS: Amlodipine 10 MG TAB PO SCH (09:01)
--- NOTE | 2017-06-08 13:18 | PDOC.PN ---
- Subjective Encounter Start Date: 06/08/17 Encounter Start Time: 13:17 Subjective: feels better. able to talk better and moving R arm some today -: no new complaints - Objective MAR Reviewed: Yes Vital Signs & Weight: Vital Signs (12 hours) Temp Pulse Pulse Resp BP BP Pulse Ox 06/08/17 12:00 99.4 F 93 18 145/95 H 99 06/08/17 09:02 75 147/93 H 06/08/17 09:01 75 06/08/17 08:54 98.8 F 75 18 147/93 H 99 06/08/17 08:50 98.8 F 75 18 99 06/08/17 03:47 99.3 F 69 16 142/102 H 94 L Weight Admit Weight 194 lb 0.108 oz Weight 194 lb 3.2 oz Most Recent Monitor Data Heart Rate from ECG 107 NIBP 149/97 NIBP BP-Mean 120 Respiration from ECG 18 SpO2 99 I&O: 06/07/17 06/08/17 06/09/17 06:59 06:59 06:59 Intake Total 1360 460 Output Total 400 Balance 960 460 Result Diagrams: 06/08/17 05:25 06/08/17 05:25 Additional Labs: Microbiology 06/04/17 23:45 Urine clean catch Urine Culture - Final NO GROWTH AT 48 HOURS 06/04/17 17:44 Venous blood - Left Arm Blood Culture - Preliminary NO GROWTH AT 48 HOURS 06/04/17 17:44 Venous blood - Left Arm Blood Culture - Preliminary NO GROWTH AT 48 HOURS Phys Exam - Physical Examination Constitutional: NAD HEENT: PERRLA, moist MMs, sclera anicteric, oral pharynx no lesions Neck: no JVD Respiratory: no wheezing, no rales, no rhonchi, clear to auscultation bilateral Cardiovascular: RRR, no significant murmur Gastrointestinal: soft, non-tender, no distention, positive bowel sounds Musculoskeletal: no edema, pulses present R hemiparesis but improving.dysarthria but improving Psychiatric: normal affect, A&O x 3 Skin: no rash Dx/Plan (1) Acute intracerebral hemorrhage Code(s): I61.9 - NONTRAUMATIC INTRACEREBRAL HEMORRHAGE, UNSPECIFIED Status: Acute Comment: Patient is managed by Dr. Salmon from Neurosurgery, Repeat CT shows stable bleed (2) Alcohol abuse Code(s): F10.10 - ALCOHOL ABUSE, UNCOMPLICATED Status: Acute Comment: on Thiamine 100mg IV daily and folic acid 1 mg IV daily (3) Aphasia Code(s): R47.01 - APHASIA Status: Acute Comment: Spech evalaution.on Pureed diet (4) Seizure in response to acute event Code(s): R56.9 - UNSPECIFIED CONVULSIONS Status: Acute Comment: Patient seizure is from bleed, will Started Prophylactic Kepra 500mg BID, and Recommand Consulting Neurology. seizure likely from Bleed or He could have withdrawl seizures from Alchol. pt on Ativan for seizures. (5) Uncontrolled hypertension Code(s): I10 - ESSENTIAL (PRIMARY) HYPERTENSION Status: Acute Comment: Off of Nicardipine drip.PRN labetalol.Norvasc started (6) Acute encephalopathy Code(s): G93.40 - ENCEPHALOPATHY, UNSPECIFIED Status: Resolved Comment: Likely from Stroke/ Alchol wihtdrawl.Improving - Plan plan discussed w/ family, PT/OT, speech therapy, out of bed/ambulate, DVT proph w/SCDs cont frequent neuro checks. -: change keppra to PO BID.no seizures. -: check UA as first sample was not sent for Cx & nursing report foul smell -: awaiting placement-pt uninsured. -: monitor BP.controlled on amlodipine so far * . Review of Systems - Review of Systems Constitutional: negative: fever, chills, sweats, weakness, malaise, other Eyes: negative: Pain, Vision Change, Conjunctivae Inflammation, Eyelid Inflammation, Redness, Other ENT: negative: Ear Pain, Ear Discharge, Nose Pain, Nose Discharge, Nose Congestion, Mouth Pain, Mouth Swelling, Throat Pain, Throat Swelling, Other Respiratory: negative: Cough, Dry, Shortness of Breath, Hemoptysis, SOB with Excertion, Pleuritic Pain, Sputum, Wheezing Cardiovascular: negative: chest pain, palpitations, orthopnea, paroxysmal nocturnal dyspnea, edema, light headedness, other Gastrointestinal: negative: Nausea, Vomiting, Abdominal Pain, Diarrhea, Constipation, Melena, Hematochezia, Other Genitourinary: negative: Dysuria, Frequency, Incontinence, Hematuria, Retention , Other Musculoskeletal: negative: Neck Pain, Shoulder Pain, Arm Pain, Back Pain, Hand Pain, Leg Pain, Foot Pain, Other Neurological: Weakness, Change in Speech - Medications/Allergies Allergies/Adverse Reactions: Allergies Allergy/AdvReac Type Severity Reaction Status Date / Time No Known Allergies Allergy Unverified 06/04/17 17:32 Medications: Current Medications Acetaminophen (Tylenol) 650 mg [place] Q4H PRN PRN Reason: Headache/Fever or Pain Last Admin: 06/04/17 22:45 Dose: 650 mg Amlodipine Besylate (Norvasc) 10 mg PO DAILY [facility] Last Admin: 06/08/17 09:01 Dose: 10 mg Famotidine (Pepcid) 20 mg SLOW IVP Q12HR [facility] Last Admin: 06/08/17 09:01 Dose: 20 mg Thiamine HCl 100 mg/ Sodium (Chloride) 51 mls @ 100 mls/hr IVPB Q24HR [facility] Last Admin: 06/07/17 20:09 Dose: 51 mls Sodium Chloride (Normal Saline 0.9%) 1,000 mls @ 50 mls/hr IV .Q20H [facility] Last Admin: 06/08/17 06:32 Dose: 1,000 mls Labetalol HCl (Normodyne) 10 mg SLOW IVP Q2H PRN PRN Reason: SBP > 150 or DBP > 90 Last Admin: 06/05/17 08:00 Dose: 10 mg Levetiracetam (Keppra Oral Solution) 500 mg PO BID [facility] Ondansetron HCl (Zofran) 4 mg IVP BIDPRN PRN PRN Reason: Nausea/Vomiting Last Admin: 06/04/17 20:44 Dose: 4 mg Sodium Chloride (Flush - Normal Saline) 10 ml IVF PRN PRN PRN Reason: Saline Flush Tamsulosin HCl (Flomax) 0.4 mg PO DAILY [facility] Last Admin: 06/08/17 09:01 Dose: 0.4 mg
[2017-06-08] MEDS ORDERED: Diabetic Tussin 200 MG/10 ML UDCUP PO SCH (19:30)
[2017-06-08] MEDS: levETIRAcetam 500 mg/5 ml Oral Solution PO SCH (20:07)
[2017-06-09] MEDS: Labetalol HCl 100 MG/20 ML VIAL SLOW IVP PRN ×2 (04:37→21:22)
[2017-06-09] MEDS: Tamsulosin HCl 0.4 MG CAP PO SCH (08:32)
[2017-06-09] MEDS: Amlodipine 10 MG TAB PO SCH (08:33)
[2017-06-09] MEDS: levETIRAcetam 500 mg/5 ml Oral Solution PO SCH ×2 (08:33→21:14)
[2017-06-09] MEDS: Famotidine/PF 20 mg/2ml Vial SLOW IVP SCH ×2 (08:33→21:14)
[2017-06-09] MEDS: Sodium Chloride 0.9% 1,000 ML IV SCH (08:42)
[2017-06-09] MEDS ORDERED: Hydrochlorothiazide 25 MG TAB PO SCH (09:00)
[2017-06-09 09:34] LABS: Bilirubin Small (Negative); Blood, Urine Negative (Negative); Clarity CLEAR (Clear); Glucose, Urine (Dipstick) Negative (Negative); Leukocyte Small (Negative); Nitrite Negative (Negative); Protein, Urine (Dipstick) Negative (Neg-Trace); Specific Gravity, Urine 1.022 (1.002-1.036)
[2017-06-09 09:40] LABS: Bacteria/HPF None Seen HPF (None Seen); Hyaline Casts/LPF 0-3 HYALINE CAST LPF (0-3 Hyaline); Pathc Cast-AUWi Flag 0.13 (0-2.49); Squamous Epithelial 0-3 HPF (0-3)
--- NOTE | 2017-06-09 10:44 | PDOC.PN ---
- Subjective Encounter Start Date: 06/09/17 Encounter Start Time: 10:43 Subjective: feels Ok. no new events.eating and drinking good -: working w PT w some improvement in R sided weakness - Objective MAR Reviewed: Yes Vital Signs & Weight: Vital Signs (12 hours) Temp Pulse Resp BP BP Pulse Ox 06/09/17 08:33 81 153/104 H 06/09/17 08:00 98.7 F 81 18 06/09/17 07:46 98.7 F 81 18 153/104 H 99 06/09/17 04:37 75 186/119 H 06/09/17 04:00 99.3 F 75 14 173/130 H 96 06/08/17 23:56 98.7 F 80 14 180/120 H 98 Weight Admit Weight 194 lb 0.108 oz Weight 184 lb 1.6 oz Most Recent Monitor Data Heart Rate from ECG 107 NIBP 149/97 NIBP BP-Mean 120 Respiration from ECG 18 SpO2 99 I&O: 06/08/17 06/09/17 06/10/17 06:59 06:59 06:59 Intake Total 460 1360 240 Balance 460 1360 240 Result Diagrams: 06/08/17 05:25 06/08/17 05:25 Phys Exam - Physical Examination Constitutional: NAD HEENT: PERRLA, moist MMs, sclera anicteric, oral pharynx no lesions Neck: no nodes, no JVD, supple, full ROM Respiratory: no wheezing, no rales, no rhonchi, clear to auscultation bilateral Cardiovascular: RRR, no significant murmur, no rub, gallop Gastrointestinal: soft, non-tender, no distention, positive bowel sounds Musculoskeletal: no edema, pulses present R hemiparesis.able to move arm & leg up against gravity some Dysarthria w slow speech Psychiatric: normal affect, A&O x 3 Skin: no rash Dx/Plan (1) Acute intracerebral hemorrhage Code(s): I61.9 - NONTRAUMATIC INTRACEREBRAL HEMORRHAGE, UNSPECIFIED Status: Acute Comment: Patient is managed by Dr. Salmon from Neurosurgery, Repeat CT shows stable bleed (2) Alcohol abuse Code(s): F10.10 - ALCOHOL ABUSE, UNCOMPLICATED Status: Acute Comment: on Thiamine 100mg IV daily and folic acid 1 mg IV daily (3) Aphasia Code(s): R47.01 - APHASIA Status: Acute Comment: Spech evalaution.on Pureed diet (4) Seizure in response to acute event Code(s): R56.9 - UNSPECIFIED CONVULSIONS Status: Acute Comment: Patient seizure is from bleed, will Started Prophylactic Kepra 500mg BID, and Recommand Consulting Neurology. seizure likely from Bleed or He could have withdrawl seizures from Alchol. pt on Ativan for seizures. (5) Uncontrolled hypertension Code(s): I10 - ESSENTIAL (PRIMARY) HYPERTENSION Status: Acute Comment: Off of Nicardipine drip.PRN labetalol.Norvasc started (6) Acute encephalopathy Code(s): G93.40 - ENCEPHALOPATHY, UNSPECIFIED Status: Resolved Comment: Likely from Stroke/ Alchol wihtdrawl.Improving - Plan plan discussed w/ family, PT/OT, social worker psychiatric, out of bed/ambulate BP high.Add HCTZ.cont Norvasc.monitor.Keep SBP<140 -: no ASA d/t ICH.OP f/u w CT in 4 weeks. -: frequent neuro exams. -: Awaiting placement * . Review of Systems - Review of Systems Constitutional: negative: fever, chills, sweats, weakness, malaise, other ENT: negative: Ear Pain, Ear Discharge, Nose Pain, Nose Discharge, Nose Congestion, Mouth Pain, Mouth Swelling, Throat Pain, Throat Swelling, Other Respiratory: negative: Cough, Dry, Shortness of Breath, Hemoptysis, SOB with Excertion, Pleuritic Pain, Sputum, Wheezing Cardiovascular: negative: chest pain, palpitations, orthopnea, paroxysmal nocturnal dyspnea, edema, light headedness, other Gastrointestinal: negative: Nausea, Vomiting, Abdominal Pain, Diarrhea, Constipation, Melena, Hematochezia, Other Genitourinary: negative: Dysuria, Frequency, Incontinence, Hematuria, Retention , Other Musculoskeletal: negative: Neck Pain, Shoulder Pain, Arm Pain, Back Pain, Hand Pain, Leg Pain, Foot Pain, Other Neurological: Weakness, Change in Speech - Medications/Allergies Allergies/Adverse Reactions: Allergies Allergy/AdvReac Type Severity Reaction Status Date / Time No Known Allergies Allergy Unverified 06/04/17 17:32 Medications: Current Medications Acetaminophen (Tylenol) 650 mg [place] Q4H PRN PRN Reason: Headache/Fever or Pain Last Admin: 06/04/17 22:45 Dose: 650 mg Amlodipine Besylate (Norvasc) 10 mg PO DAILY [facility] Last Admin: 06/09/17 08:33 Dose: 10 mg Famotidine (Pepcid) 20 mg SLOW IVP Q12HR [facility] Last Admin: 06/09/17 08:33 Dose: 20 mg Hydrochlorothiazide (Hydrochlorothiazide) 12.5 mg PO DAILY [facility] Last Admin: 06/09/17 08:32 Dose: 12.5 mg Thiamine HCl 100 mg/ Sodium (Chloride) 51 mls @ 100 mls/hr IVPB Q24HR [facility] Last Admin: 06/08/17 20:06 Dose: 51 mls Labetalol HCl (Normodyne) 10 mg SLOW IVP Q2H PRN PRN Reason: SBP > 150 or DBP > 90 Last Admin: 06/09/17 04:37 Dose: 10 mg Levetiracetam (Keppra Oral Solution) 500 mg PO BID [facility] Last Admin: 06/09/17 08:33 Dose: 500 mg Ondansetron HCl (Zofran) 4 mg IVP BIDPRN PRN PRN Reason: Nausea/Vomiting Last Admin: 06/04/17 20:44 Dose: 4 mg Sodium Chloride (Flush - Normal Saline) 10 ml IVF PRN PRN PRN Reason: Saline Flush Tamsulosin HCl (Flomax) 0.4 mg PO DAILY [facility] Last Admin: 06/09/17 08:32 Dose: 0.4 mg
[2017-06-09] MEDS ORDERED: cefTRIAXone\\ROCEPHIN 1 GM in Sodium Chloride 0.9% 100 ML IVPB SCH (11:00)
[2017-06-09] MEDS: cefTRIAXone\\ROCEPHIN 1 GM, Syringe 0.4 ML in Sterile Water 9.6 ML SLOW IVP SCH (11:59)
[2017-06-10 05:48] LABS: Anion Gap 15 mmol/L (10-20); BUN (Urea Nitrogen) 10 mg/dL (8.4-25.7); Calc. Creatinine Clearance 101 mL/min (70-130); Calcium 9.5 mg/dL (7.8-10.44); Carbon Dioxide 23 mmol/L (22-29); Chloride 102 mmol/L (98-107); Estimated GFR-MDRD Greater than 90; Glucose 93 mg/dL (70-105); Sodium 137 mmol/L (136-145)
[2017-06-10 05:50] LABS: Potassium 2.9 mmol/L (3.5-5.1)
[2017-06-10] MEDS ORDERED: Potassium Chloride 40 MEQ in Sodium Chloride 0.9% 500 ML IVPB SCH (06:15)
[2017-06-10 06:17] LABS: Magnesium 2.1 mg/dL (1.6-2.6); Phosphorus 4.8 mg/dL (2.3-4.7)
[2017-06-10] MEDS: levETIRAcetam 500 mg/5 ml Oral Solution PO SCH ×2 (08:34→21:32)
[2017-06-10] MEDS: Tamsulosin HCl 0.4 MG CAP PO SCH (08:34)
[2017-06-10] MEDS: Amlodipine 10 MG TAB PO SCH (08:34)
[2017-06-10] MEDS: Famotidine/PF 20 mg/2ml Vial SLOW IVP SCH ×2 (08:35→21:32)
--- NOTE | 2017-06-10 08:58 | PDOC.PN ---
- Subjective Encounter Start Date: 06/10/17 Encounter Start Time: 08:56 Patient seen at bedside. Doing better, no overnight events. - Objective MAR Reviewed: Yes Vital Signs & Weight: Vital Signs (12 hours) Temp Pulse Resp BP BP Pulse Ox 06/10/17 08:34 73 119/74 06/10/17 07:49 98.3 F 73 18 119/74 99 06/10/17 04:40 98.1 F 86 16 101/67 97 06/10/17 00:00 71 18 126/84 98 06/09/17 21:22 80 178/88 H Weight Admit Weight 194 lb 0.108 oz Weight 180 lb 7 oz Most Recent Monitor Data Heart Rate from ECG 107 NIBP 149/97 NIBP BP-Mean 120 Respiration from ECG 18 SpO2 99 I&O: 06/09/17 06/10/17 06/11/17 06:59 06:59 06:59 Intake Total 1360 1785 Output Total 750 Balance 1360 1035 Result Diagrams: 06/08/17 05:25 06/10/17 04:47 Phys Exam - Physical Examination Constitutional: NAD HEENT: moist MMs Respiratory: clear to auscultation bilateral Cardiovascular: RRR Gastrointestinal: soft Musculoskeletal: pulses present Right hemiparesis, dysarthria Skin: normal turgor Dx/Plan (1) Hypokalemia Code(s): E87.6 - HYPOKALEMIA Status: Acute (2) Acute intracerebral hemorrhage Code(s): I61.9 - NONTRAUMATIC INTRACEREBRAL HEMORRHAGE, UNSPECIFIED Status: Acute Comment: Patient is managed by Dr. Salmon from Neurosurgery, Repeat CT shows stable bleed (3) Alcohol abuse Code(s): F10.10 - ALCOHOL ABUSE, UNCOMPLICATED Status: Acute Comment: on Thiamine 100mg IV daily and folic acid 1 mg IV daily (4) Acute encephalopathy Code(s): G93.40 - ENCEPHALOPATHY, UNSPECIFIED Status: Resolved Comment: Likely from Stroke/ Alchol wihtdrawl.Improving - Plan cont current plan of care, plan discussed w/ family, continue antibiotics, PT/OT , delinquency prevention social worker, speech therapy, DVT proph w/SCDs * Continue with current management. * No ASA due to ICH. Repeat CT scan in 4 weeks * Continue with Flomax * BP control * Replete K+. Recheck this afternoon * Await placement if possible (Rehab vs SNF). If not then will go home with HH.
[2017-06-10] MEDS: cefTRIAXone\\ROCEPHIN 1 GM, Syringe 0.4 ML in Sterile Water 9.6 ML SLOW IVP SCH (10:09)
[2017-06-10 15:28] LABS: Anion Gap 15 mmol/L (10-20); BUN (Urea Nitrogen) 12 mg/dL (8.4-25.7); Calc. Creatinine Clearance 95 mL/min (70-130); Calcium 9.4 mg/dL (7.8-10.44); Carbon Dioxide 22 mmol/L (22-29); Chloride 104 mmol/L (98-107); Estimated GFR-MDRD 89; Glucose 100 mg/dL (70-105); Potassium 3.4 mmol/L (3.5-5.1); Sodium 138 mmol/L (136-145)
[2017-06-11] MEDS: Amlodipine 10 MG TAB PO SCH (09:30)
[2017-06-11] MEDS: Famotidine/PF 20 mg/2ml Vial SLOW IVP SCH (09:30)
[2017-06-11] MEDS: levETIRAcetam 500 mg/5 ml Oral Solution PO SCH (09:30)
[2017-06-11] MEDS: Tamsulosin HCl 0.4 MG CAP PO SCH (09:31)
[2017-06-11] MEDS: cefTRIAXone\\ROCEPHIN 1 GM, Syringe 0.4 ML in Sterile Water 9.6 ML SLOW IVP SCH (14:20)
--- NOTE | 2017-06-11 18:18 | PDOC.PN ---
- Subjective Encounter Start Date: 06/11/17 Encounter Start Time: 10:00 Patient seen and examined. No new complaints. No new focal deficits. No overnight events - Objective MAR Reviewed: Yes Vital Signs & Weight: Vital Signs (12 hours) Temp Pulse Pulse Resp BP BP Pulse Ox 06/11/17 15:46 98.4 F 91 16 118/50 L 99 06/11/17 12:12 99.0 F 82 20 131/77 94 L 06/11/17 09:30 70 06/11/17 08:55 74 119/84 06/11/17 08:03 98.6 F 70 20 128/82 95 06/11/17 08:00 99.0 F 82 20 Weight Admit Weight 194 lb 0.108 oz Weight 180 lb 7 oz Most Recent Monitor Data Heart Rate from ECG 107 NIBP 149/97 NIBP BP-Mean 120 Respiration from ECG 18 SpO2 99 I&O: 06/10/17 06/11/17 06/12/17 06:59 06:59 06:59 Intake Total 1785 2370 480 Output Total 750 Balance 1035 2370 480 Result Diagrams: 06/08/17 05:25 06/10/17 15:00 EKG Reviewed by me: Yes (Tele SR) Phys Exam - Physical Examination Constitutional: NAD Respiratory: no wheezing, no rhonchi Cardiovascular: RRR, no rub Gastrointestinal: soft, non-tender, positive bowel sounds Musculoskeletal: no edema Neurological: moves all 4 limbs Rt sided weakness UE > LE Dx/Plan - Plan IMPRESSION: 1. Acute intracerebral hemorrhage with Rt sided weakness. 2. Hypokalemia 3. Urinary retention - stable on Flomax 4. Encephalopathy - improved 5. HTN crisis / Chronic alcoholism/Swallow dysfunction PLAN: * Cont PT * Cont Modified diet * CM working on [facility] vs SNF * Cont Amlodipine * Change thiamine to PO * Change Keppra to Cap form * Cont flomax * Cotn to monitor * Replace Potassium * DC Ceftriaxone - Urine cultures negative * No antiplatelet/anticoag due to intracerebral bleed. Review of Systems - Review of Systems Respiratory: negative: Cough, Dry, Shortness of Breath, Hemoptysis, SOB with Excertion, Pleuritic Pain, Sputum, Wheezing Cardiovascular: negative: chest pain, palpitations, orthopnea, paroxysmal nocturnal dyspnea, edema, light headedness - Medications/Allergies Allergies/Adverse Reactions: Allergies Allergy/AdvReac Type Severity Reaction Status Date / Time No Known Allergies Allergy Verified 06/11/17 18:35 Medications: Current Medications Acetaminophen (Tylenol) 650 mg [place] Q4H PRN PRN Reason: Headache/Fever or Pain Last Admin: 06/04/17 22:45 Dose: 650 mg Amlodipine Besylate (Norvasc) 10 mg PO DAILY [facility] Last Admin: 06/11/17 09:30 Dose: 10 mg Famotidine (Pepcid) 20 mg PO BID [facility] Folic Acid (Folvite) 1 mg PO DAILY [facility] Labetalol HCl (Normodyne) 10 mg SLOW IVP Q2H PRN PRN Reason: SBP > 150 or DBP > 90 Last Admin: 06/09/17 21:22 Dose: 10 mg Levetiracetam (Keppra) 500 mg PO BID [facility] Multivitamins (Theragran) 1 tab PO DAILY [facility] Ondansetron HCl (Zofran) 4 mg IVP BIDPRN PRN PRN Reason: Nausea/Vomiting Last Admin: 06/04/17 20:44 Dose: 4 mg Sodium Chloride (Flush - Normal Saline) 10 ml IVF PRN PRN PRN Reason: Saline Flush Last Admin: 06/10/17 21:33 Dose: 10 ml Tamsulosin HCl (Flomax) 0.4 mg PO DAILY [facility] Last Admin: 06/11/17 09:31 Dose: 0.4 mg Thiamine HCl (Thiamine) 100 mg PO DAILY [facility]
[2017-06-11] MEDS: Famotidine 20 MG TAB PO SCH (21:04)
[2017-06-11] MEDS: levETIRAcetam 500 MG TAB PO SCH (21:04)
[2017-06-12 05:16] LABS: Potassium 3.7 mmol/L (3.5-5.1)
[2017-06-12] MEDS: Tamsulosin HCl 0.4 MG CAP PO SCH (10:07)
[2017-06-12] MEDS: Amlodipine 10 MG TAB PO SCH (10:08)
[2017-06-12] MEDS: levETIRAcetam 500 MG TAB PO SCH ×2 (10:08→22:30)
[2017-06-12] MEDS: Folic Acid 1 MG TAB PO SCH (10:08)
[2017-06-12] MEDS: Famotidine 20 MG TAB PO SCH ×2 (10:08→22:30)
[2017-06-12] MEDS: Multivit, Therapeutic 1 TAB PO SCH (10:08)
[2017-06-12] MEDS ORDERED: cloNIDine 0.1 MG TAB PO PRN (20:31)
--- NOTE | 2017-06-12 20:34 | PDOC.PN ---
- Subjective Encounter Start Date: 06/12/17 Encounter Start Time: 20:32 Patient seen and examined. No new complaints. No overnight events - Objective MAR Reviewed: Yes Vital Signs & Weight: Vital Signs (12 hours) Temp Pulse Pulse Resp BP BP Pulse Ox 06/12/17 19:45 99.4 F 99 16 128/92 H 97 06/12/17 16:00 98.5 F 68 20 125/82 06/12/17 12:00 98.6 F 65 16 116/84 99 06/12/17 10:08 61 06/12/17 09:21 68 136/104 H Weight Admit Weight 194 lb 0.108 oz Weight 194 lb 1.6 oz Most Recent Monitor Data Heart Rate from ECG 107 NIBP 149/97 NIBP BP-Mean 120 Respiration from ECG 18 SpO2 99 I&O: 06/11/17 06/12/17 06/13/17 06:59 06:59 06:59 Intake Total 2370 720 600 Balance 2370 720 600 Result Diagrams: 06/08/17 05:25 06/12/17 04:29 EKG Reviewed by me: Yes (Tele SR) Phys Exam - Physical Examination Constitutional: NAD Respiratory: no wheezing, no rhonchi Cardiovascular: RRR, no rub Gastrointestinal: soft, non-tender, positive bowel sounds Musculoskeletal: no edema Neurological: moves all 4 limbs (no new focal findings) Dx/Plan - Plan DVT proph w/SCDs IMPRESSION: 1. Acute intracerebral hemorrhage with Rt sided weakness. 2. Hypokalemia - improved 3. Urinary retention - stable on Flomax 4. Encephalopathy - improved 5. HTN crisis / Chronic alcoholism/ Swallow dysfunction - on modified diet PLAN: * CM working on [facility] vs SNF * Cont Amlodipine/Keppra/flomax * Cont to monitor * No antiplatelet/anticoag due to intracerebral bleed. * Cont PT Review of Systems - Review of Systems Respiratory: negative: Cough, Dry, Shortness of Breath, Hemoptysis, SOB with Excertion, Pleuritic Pain, Sputum, Wheezing Cardiovascular: negative: chest pain, palpitations, orthopnea, paroxysmal nocturnal dyspnea, edema, light headedness Gastrointestinal: negative: Nausea, Vomiting, Abdominal Pain, Diarrhea, Constipation, Melena, Hematochezia - Medications/Allergies Allergies/Adverse Reactions: Allergies Allergy/AdvReac Type Severity Reaction Status Date / Time No Known Allergies Allergy Verified 06/11/17 18:35 Medications: Current Medications Acetaminophen (Tylenol) 650 mg [place] Q4H PRN PRN Reason: Headache/Fever or Pain Last Admin: 06/04/17 22:45 Dose: 650 mg Amlodipine Besylate (Norvasc) 10 mg PO DAILY [facility] Last Admin: 06/12/17 10:08 Dose: 10 mg Clonidine (Catapres) 0.1 mg PO Q4H PRN PRN Reason: Systolic BP > 180 Famotidine (Pepcid) 20 mg PO BID [facility] Last Admin: 06/12/17 10:08 Dose: 20 mg Folic Acid (Folvite) 1 mg PO DAILY [facility] Last Admin: 06/12/17 10:08 Dose: 1 mg Labetalol HCl (Normodyne) 10 mg SLOW IVP Q2H PRN PRN Reason: SBP > 150 or DBP > 90 Last Admin: 06/09/17 21:22 Dose: 10 mg Levetiracetam (Keppra) 500 mg PO BID [facility] Last Admin: 06/12/17 10:08 Dose: 500 mg Multivitamins (Theragran) 1 tab PO DAILY [facility] Last Admin: 06/12/17 10:08 Dose: 1 tab Ondansetron HCl (Zofran) 4 mg IVP BIDPRN PRN PRN Reason: Nausea/Vomiting Last Admin: 06/04/17 20:44 Dose: 4 mg Potassium Chloride (Klor-Con) 20 meq PO QAM-WM [facility] Last Admin: 06/12/17 10:08 Dose: 20 meq Sodium Chloride (Flush - Normal Saline) 10 ml IVF PRN PRN PRN Reason: Saline Flush Last Admin: 06/11/17 21:04 Dose: 10 ml Tamsulosin HCl (Flomax) 0.4 mg PO DAILY [facility] Last Admin: 06/12/17 10:07 Dose: 0.4 mg Thiamine HCl (Thiamine) 100 mg PO DAILY [facility] Last Admin: 06/12/17 10:08 Dose: 100 mg
[2017-06-13] MEDS: levETIRAcetam 500 MG TAB PO SCH ×2 (10:27→21:11)
[2017-06-13] MEDS: Tamsulosin HCl 0.4 MG CAP PO SCH (10:27)
[2017-06-13] MEDS: Famotidine 20 MG TAB PO SCH ×2 (10:27→21:11)
[2017-06-13] MEDS: Folic Acid 1 MG TAB PO SCH (10:28)
[2017-06-13] MEDS: Multivit, Therapeutic 1 TAB PO SCH (10:28)
[2017-06-13] MEDS: Amlodipine 10 MG TAB PO SCH (10:28)
--- NOTE | 2017-06-13 13:52 | PDOC.PN ---
- Subjective Encounter Start Date: 06/13/17 Encounter Start Time: 12:30 Patient seen and examined. No new complaints. No overnight events. No new focal deficits. No CP/SOB. - Objective MAR Reviewed: Yes Vital Signs & Weight: Vital Signs (12 hours) Temp Pulse Pulse Resp BP BP Pulse Ox 06/13/17 12:00 98.2 F 66 16 121/79 94 L 06/13/17 10:28 81 06/13/17 09:15 78 136/67 06/13/17 08:15 98 F 81 17 98 06/13/17 08:13 98.0 F 81 17 111/79 98 06/13/17 06:00 114/78 06/13/17 04:06 98.2 F 75 16 128/87 97 Weight Admit Weight 194 lb 0.108 oz Weight 189 lb 4.8 oz Most Recent Monitor Data Heart Rate from ECG 107 NIBP 149/97 NIBP BP-Mean 120 Respiration from ECG 18 SpO2 99 I&O: 06/12/17 06/13/17 06/14/17 06:59 06:59 06:59 Intake Total 720 840 Balance 720 840 Result Diagrams: 06/08/17 05:25 06/12/17 04:29 EKG Reviewed by me: Yes (Tele SR) Phys Exam - Physical Examination Constitutional: NAD Respiratory: no wheezing, no rhonchi Cardiovascular: RRR, no rub Gastrointestinal: soft, non-tender, positive bowel sounds Musculoskeletal: no edema Neurological: moves all 4 limbs Dx/Plan - Plan DVT proph w/SCDs IMPRESSION: 1. Acute intracerebral hemorrhage with Rt sided weakness. 2. Hypokalemia - improved 3. Urinary retention - stable on Flomax 4. Encephalopathy - improved 5. HTN crisis / Chronic alcoholism/ Swallow dysfunction - on modified diet PLAN: * DC oral Potassium * Cont Amlodipine/Keppra/flomax * Cont to monitor * No antiplatelet/anticoag due to intracerebral bleed. * Cont PT * CM working on [facility] vs SNF Review of Systems - Review of Systems Respiratory: negative: Cough, Dry, Shortness of Breath, Hemoptysis, SOB with Excertion, Pleuritic Pain, Sputum, Wheezing Cardiovascular: negative: chest pain, palpitations, orthopnea, paroxysmal nocturnal dyspnea, edema, light headedness Gastrointestinal: negative: Nausea, Vomiting, Abdominal Pain, Diarrhea, Constipation, Melena, Hematochezia - Medications/Allergies Allergies/Adverse Reactions: Allergies Allergy/AdvReac Type Severity Reaction Status Date / Time No Known Allergies Allergy Verified 06/11/17 18:35 Medications: Current Medications Acetaminophen (Tylenol) 650 mg [place] Q4H PRN PRN Reason: Headache/Fever or Pain Last Admin: 06/04/17 22:45 Dose: 650 mg Amlodipine Besylate (Norvasc) 10 mg PO DAILY [facility] Last Admin: 06/13/17 10:28 Dose: 10 mg Clonidine (Catapres) 0.1 mg PO Q4H PRN PRN Reason: Systolic BP > 180 Famotidine (Pepcid) 20 mg PO BID [facility] Last Admin: 06/13/17 10:27 Dose: 20 mg Folic Acid (Folvite) 1 mg PO DAILY [facility] Last Admin: 06/13/17 10:28 Dose: 1 mg Labetalol HCl (Normodyne) 10 mg SLOW IVP Q2H PRN PRN Reason: SBP > 150 or DBP > 90 Last Admin: 06/09/17 21:22 Dose: 10 mg Levetiracetam (Keppra) 500 mg PO BID [facility] Last Admin: 06/13/17 10:27 Dose: 500 mg Multivitamins (Theragran) 1 tab PO DAILY [facility] Last Admin: 06/13/17 10:28 Dose: 1 tab Ondansetron HCl (Zofran) 4 mg IVP BIDPRN PRN PRN Reason: Nausea/Vomiting Last Admin: 06/04/17 20:44 Dose: 4 mg Sodium Chloride (Flush - Normal Saline) 10 ml IVF PRN PRN PRN Reason: Saline Flush Last Admin: 06/11/17 21:04 Dose: 10 ml Tamsulosin HCl (Flomax) 0.4 mg PO DAILY [facility] Last Admin: 06/13/17 10:27 Dose: 0.4 mg Thiamine HCl (Thiamine) 100 mg PO DAILY [facility] Last Admin: 06/13/17 10:27 Dose: 100 mg
[2017-06-14] MEDS: Famotidine 20 MG TAB PO SCH ×2 (11:18→21:15)
[2017-06-14] MEDS: Amlodipine 10 MG TAB PO SCH (11:18)
[2017-06-14] MEDS: Multivit, Therapeutic 1 TAB PO SCH (11:18)
[2017-06-14] MEDS: Folic Acid 1 MG TAB PO SCH (11:18)
[2017-06-14] MEDS: levETIRAcetam 500 MG TAB PO SCH ×2 (11:18→21:15)
[2017-06-14] MEDS: Tamsulosin HCl 0.4 MG CAP PO SCH (11:18)
[2017-06-14 11:28] LABS: #Basophils 0.1 thou/uL (0.0-0.2); #Eosinphils 0.1 thou/uL (0.0-0.7); #Lymphocytes 2.5 thou/uL (1.20-3.40); #Monocytes 1.4 thou/uL (0.11-0.59); #Neutrophils 5.7 thou/uL (1.40-6.50); %Basophils 0.8 % (0.0-1.0); %Eosinophils 1.2 % (0.0-10.0); %Lymphocytes 25.2 % (21.0-51.0); %Monocytes 14.5 % (0.0-10.0); %Neutrophils 58.4 % (42.0-75.0); Hemoglobin 13.7 g/dL (14.0-18.0); Mean Corpuscular HGB CONC 33.2 g/dL (32.0-36.0); Mean Corpuscular Hemoglobin 33.2 pg (27.0-31.0); Mean Platelet Volume 7.5 fL (7.4-10.4); Platelet Count 326 thou/uL (130-400); Red Blood Cell (RBC) Count 4.11 mill/uL (4.70-6.10); White Blood Cell (WBC) Count 9.8 thou/uL (4.8-10.8)
[2017-06-14 11:49] LABS: ALT (SGPT) 95 U/L (8-55); AST (SGOT) 82 U/L (5-34); Albumin 3.8 g/dL (3.5-5.0); Alkaline Phosphatase 61 U/L (40-150); Anion Gap 10 mmol/L (10-20); BUN (Urea Nitrogen) 13 mg/dL (8.4-25.7); Bilirubin, Total 0.4 mg/dL (0.2-1.2); Calc. Creatinine Clearance 106 mL/min (70-130); Calcium 9.7 mg/dL (7.8-10.44); Carbon Dioxide 26 mmol/L (22-29); Chloride 104 mmol/L (98-107); Estimated GFR-MDRD Greater than 90; Globulin 3.5 g/dL (2.4-3.5); Glucose 92 mg/dL (70-105); Magnesium 2.1 mg/dL (1.6-2.6); Potassium 3.6 mmol/L (3.5-5.1); Protein, Total 7.3 g/dL (6.0-8.3); Sodium 136 mmol/L (136-145)
--- NOTE | 2017-06-14 13:11 | RAD ---
RADIOGRAPH CHEST 1 VIEW: HISTORY: 52-year-old male with fever. FINDINGS: There are no air space densities, pulmonary edema, pneumothorax, or cardiomegaly. The lateral costop hrenic angles are sharp. IMPRESSION: No acute cardiopulmonary findings. kirsten POS: KAYKAY
--- NOTE | 2017-06-14 21:06 | PDOC.PN ---
- Subjective Encounter Start Date: 06/14/17 Encounter Start Time: 17:30 Patient seen and examined. No new complaints. No overnight events. No CP/SOB/ palpitations/focal deficits. - Objective MAR Reviewed: Yes Vital Signs & Weight: Vital Signs (12 hours) Temp Pulse Resp BP BP Pulse Ox 06/14/17 20:00 98.7 F 67 18 112/86 96 06/14/17 15:50 98.9 F 64 16 123/72 97 06/14/17 12:00 98.2 F 73 16 161/103 H 97 06/14/17 11:18 76 130/76 Weight Admit Weight 194 lb 0.108 oz Weight 194 lb 8 oz Most Recent Monitor Data Heart Rate from ECG 107 NIBP 149/97 NIBP BP-Mean 120 Respiration from ECG 18 SpO2 99 I&O: 06/13/17 06/14/17 06/15/17 06:59 06:59 06:59 Intake Total 840 670 700 Output Total 100 Balance 840 670 600 Result Diagrams: 06/14/17 11:08 06/14/17 11:08 Phys Exam - Physical Examination Constitutional: NAD Respiratory: no wheezing, no rhonchi Cardiovascular: RRR, no rub Gastrointestinal: soft, non-tender, positive bowel sounds Musculoskeletal: no edema Neurological: moves all 4 limbs Dx/Plan - Plan DVT proph w/SCDs IMPRESSION: 1. Acute intracerebral hemorrhage with Rt sided weakness. 2. Hypokalemia - improved 3. Urinary retention - stable on Flomax 4. Encephalopathy - improved 5. HTN crisis / Chronic alcoholism/ Swallow dysfunction - on modified diet PLAN: * Cont therapy * Cont Amlodipine/Keppra/flomax * Cont to monitor * No antiplatelet/anticoag due to intracerebral bleed. * DC IV access () * CM working on [facility] vs SNF - Patient is stable for discharge Review of Systems - Review of Systems Respiratory: negative: Cough, Dry, Shortness of Breath, Hemoptysis, SOB with Excertion, Pleuritic Pain, Sputum, Wheezing Cardiovascular: negative: chest pain, palpitations, orthopnea, paroxysmal nocturnal dyspnea, edema, light headedness - Medications/Allergies Allergies/Adverse Reactions: Allergies Allergy/AdvReac Type Severity Reaction Status Date / Time No Known Allergies Allergy Verified 06/11/17 18:35 Medications: Current Medications Acetaminophen (Tylenol) 650 mg [place] Q4H PRN PRN Reason: Headache/Fever or Pain Last Admin: 06/04/17 22:45 Dose: 650 mg Amlodipine Besylate (Norvasc) 10 mg PO DAILY [facility] Last Admin: 06/14/17 11:18 Dose: 10 mg Clonidine (Catapres) 0.1 mg PO Q4H PRN PRN Reason: Systolic BP > 180 Famotidine (Pepcid) 20 mg PO BID [facility] Last Admin: 06/14/17 11:18 Dose: 20 mg Folic Acid (Folvite) 1 mg PO DAILY [facility] Last Admin: 06/14/17 11:18 Dose: 1 mg Labetalol HCl (Normodyne) 10 mg SLOW IVP Q2H PRN PRN Reason: SBP > 150 or DBP > 90 Last Admin: 06/09/17 21:22 Dose: 10 mg Levetiracetam (Keppra) 500 mg PO BID [facility] Last Admin: 06/14/17 11:18 Dose: 500 mg Multivitamins (Theragran) 1 tab PO DAILY [facility] Last Admin: 06/14/17 11:18 Dose: 1 tab Ondansetron HCl (Zofran) 4 mg IVP BIDPRN PRN PRN Reason: Nausea/Vomiting Last Admin: 06/04/17 20:44 Dose: 4 mg Sodium Chloride (Flush - Normal Saline) 10 ml IVF PRN PRN PRN Reason: Saline Flush Last Admin: 06/11/17 21:04 Dose: 10 ml Tamsulosin HCl (Flomax) 0.4 mg PO DAILY [facility] Last Admin: 06/14/17 11:18 Dose: 0.4 mg Thiamine HCl (Thiamine) 100 mg PO DAILY [facility] Last Admin: 06/14/17 11:18 Dose: 100 mg
[2017-06-15] MEDS: Folic Acid 1 MG TAB PO SCH (09:21)
[2017-06-15] MEDS: Amlodipine 10 MG TAB PO SCH (09:21)
[2017-06-15] MEDS: Multivit, Therapeutic 1 TAB PO SCH (09:22)
[2017-06-15] MEDS: Famotidine 20 MG TAB PO SCH ×2 (09:22→20:31)
[2017-06-15] MEDS: levETIRAcetam 500 MG TAB PO SCH ×2 (09:22→20:32)
[2017-06-15] MEDS: Tamsulosin HCl 0.4 MG CAP PO SCH (09:22)
--- NOTE | 2017-06-15 14:31 | PDOC.PN ---
- Subjective Encounter Start Date: 06/15/17 Encounter Start Time: 14:00 Patient seen and examined. No new complaints. No overnight events. No CASTRO/seizure /focal deficits. - Objective MAR Reviewed: Yes Vital Signs & Weight: Vital Signs (12 hours) Temp Pulse Resp BP BP Pulse Ox 06/15/17 11:47 98.7 F 63 18 121/77 99 06/15/17 09:21 73 113/69 06/15/17 08:00 99.0 F 73 18 113/69 99 06/15/17 04:00 98.1 F 84 16 101/69 96 Weight Admit Weight 194 lb 0.108 oz Weight 196 lb Most Recent Monitor Data Heart Rate from ECG 107 NIBP 149/97 NIBP BP-Mean 120 Respiration from ECG 18 SpO2 99 I&O: 06/14/17 06/15/17 06/16/17 06:59 06:59 06:59 Intake Total 670 900 Output Total 100 Balance 670 800 Result Diagrams: 06/14/17 11:08 06/14/17 11:08 EKG Reviewed by me: Yes (Tele SR) Phys Exam - Physical Examination Constitutional: NAD Respiratory: no wheezing, no rhonchi Cardiovascular: RRR, no rub Gastrointestinal: soft, non-tender, positive bowel sounds Musculoskeletal: no edema Neurological: moves all 4 limbs No new focal deficits. Dx/Plan - Plan DVT proph w/SCDs IMPRESSION: 1. Acute intracerebral hemorrhage with Rt sided weakness. 2. HTN crisis 3. Urinary retention - stable on Flomax 4. Encephalopathy - improved 5. Hypokalemia / Chronic alcoholism/ Swallow dysfunction - on modified diet PLAN: * Cont therapy * Cont Amlodipine/Keppra/flomax * No antiplatelet/anticoag due to intracerebral bleed. * CM working on [facility] vs SNF - Patient is stable for discharge Review of Systems - Review of Systems Respiratory: negative: Cough, Dry, Shortness of Breath, Hemoptysis, SOB with Excertion, Pleuritic Pain, Sputum, Wheezing Cardiovascular: negative: chest pain, palpitations, orthopnea, paroxysmal nocturnal dyspnea, edema, light headedness - Medications/Allergies Allergies/Adverse Reactions: Allergies Allergy/AdvReac Type Severity Reaction Status Date / Time No Known Allergies Allergy Verified 06/11/17 18:35 Medications: Current Medications Acetaminophen (Tylenol) 650 mg [place] Q4H PRN PRN Reason: Headache/Fever or Pain Last Admin: 06/04/17 22:45 Dose: 650 mg Amlodipine Besylate (Norvasc) 10 mg PO DAILY [facility] Last Admin: 06/15/17 09:21 Dose: 10 mg Clonidine (Catapres) 0.1 mg PO Q4H PRN PRN Reason: Systolic BP > 180 Famotidine (Pepcid) 20 mg PO BID [facility] Last Admin: 06/15/17 09:22 Dose: 20 mg Folic Acid (Folvite) 1 mg PO DAILY [facility] Last Admin: 06/15/17 09:21 Dose: 1 mg Labetalol HCl (Normodyne) 10 mg SLOW IVP Q2H PRN PRN Reason: SBP > 150 or DBP > 90 Last Admin: 06/09/17 21:22 Dose: 10 mg Levetiracetam (Keppra) 500 mg PO BID [facility] Last Admin: 06/15/17 09:22 Dose: 500 mg Multivitamins (Theragran) 1 tab PO DAILY [facility] Last Admin: 06/15/17 09:22 Dose: 1 tab Ondansetron HCl (Zofran) 4 mg IVP BIDPRN PRN PRN Reason: Nausea/Vomiting Last Admin: 06/04/17 20:44 Dose: 4 mg Sodium Chloride (Flush - Normal Saline) 10 ml IVF PRN PRN PRN Reason: Saline Flush Last Admin: 06/11/17 21:04 Dose: 10 ml Tamsulosin HCl (Flomax) 0.4 mg PO DAILY [facility] Last Admin: 06/15/17 09:22 Dose: 0.4 mg Thiamine HCl (Thiamine) 100 mg PO DAILY [facility] Last Admin: 06/15/17 09:21 Dose: 100 mg
[2017-06-16] MEDS: levETIRAcetam 500 MG TAB PO SCH ×2 (09:50→20:14)
[2017-06-16] MEDS: Amlodipine 10 MG TAB PO SCH (09:50)
[2017-06-16] MEDS: Multivit, Therapeutic 1 TAB PO SCH (09:50)
[2017-06-16] MEDS: Tamsulosin HCl 0.4 MG CAP PO SCH (09:50)
[2017-06-16] MEDS: Famotidine 20 MG TAB PO SCH ×2 (09:51→20:14)
[2017-06-16] MEDS: Folic Acid 1 MG TAB PO SCH (09:51)
--- NOTE | 2017-06-16 17:07 | PDOC.PN ---
- Subjective Encounter Start Date: 06/16/17 Encounter Start Time: 10:30 Patient seen and examined. No new complaints. No CP/SOB. No new focal deficits. No overnight events - Objective MAR Reviewed: Yes Vital Signs & Weight: Vital Signs (12 hours) Temp Pulse Resp BP BP Pulse Ox 06/16/17 15:46 99 F 65 18 132/77 98 06/16/17 15:44 99 F 65 18 132/77 98 06/16/17 11:48 98.4 F 82 16 136/91 H 97 06/16/17 09:50 73 135/91 H 06/16/17 08:00 99 F 65 18 97 06/16/17 07:34 99 F 73 18 135/91 H 97 Weight Admit Weight 194 lb 0.108 oz Weight 198 lb Most Recent Monitor Data Heart Rate from ECG 107 NIBP 149/97 NIBP BP-Mean 120 Respiration from ECG 18 SpO2 99 I&O: 06/15/17 06/16/17 06/17/17 06:59 06:59 06:59 Intake Total 900 920 Output Total 100 Balance 800 920 Result Diagrams: 06/14/17 11:08 06/14/17 11:08 EKG Reviewed by me: Yes (Tele SR) Phys Exam - Physical Examination Constitutional: NAD Respiratory: no wheezing, no rhonchi Cardiovascular: RRR, no rub Gastrointestinal: soft, non-tender, positive bowel sounds Musculoskeletal: no edema Neurological: moves all 4 limbs Dx/Plan - Plan DVT proph w/SCDs IMPRESSION: 1. Acute intracerebral hemorrhage with Rt sided weakness. 2. HTN crisis - improved 3. Urinary retention - stable on Flomax 4. Encephalopathy - improved 5. Hypokalemia / Chronic alcoholism/ Swallow dysfunction - on modified diet PLAN: * Cont PT/OT * Cont Amlodipine/Keppra/flomax * No antiplatelet/anticoag due to intracerebral bleed. * CM working on [facility] vs SNF - Patient is stable for discharge * Home meds rec completed. Review of Systems - Review of Systems Respiratory: negative: Cough, Dry, Shortness of Breath, Hemoptysis, SOB with Excertion, Pleuritic Pain, Sputum, Wheezing Cardiovascular: negative: chest pain, palpitations, orthopnea, paroxysmal nocturnal dyspnea, edema, light headedness - Medications/Allergies Allergies/Adverse Reactions: Allergies Allergy/AdvReac Type Severity Reaction Status Date / Time No Known Allergies Allergy Verified 06/11/17 18:35 Medications: Current Medications Acetaminophen (Tylenol) 650 mg [place] Q4H PRN PRN Reason: Headache/Fever or Pain Last Admin: 06/04/17 22:45 Dose: 650 mg Amlodipine Besylate (Norvasc) 10 mg PO DAILY [facility] Last Admin: 06/16/17 09:50 Dose: 10 mg Clonidine (Catapres) 0.1 mg PO Q4H PRN PRN Reason: Systolic BP > 180 Famotidine (Pepcid) 20 mg PO BID [facility] Last Admin: 06/16/17 09:51 Dose: 20 mg Folic Acid (Folvite) 1 mg PO DAILY [facility] Last Admin: 06/16/17 09:51 Dose: 1 mg Labetalol HCl (Normodyne) 10 mg SLOW IVP Q2H PRN PRN Reason: SBP > 150 or DBP > 90 Last Admin: 06/09/17 21:22 Dose: 10 mg Levetiracetam (Keppra) 500 mg PO BID [facility] Last Admin: 06/16/17 09:50 Dose: 500 mg Multivitamins (Theragran) 1 tab PO DAILY [facility] Last Admin: 06/16/17 09:50 Dose: 1 tab Ondansetron HCl (Zofran) 4 mg IVP BIDPRN PRN PRN Reason: Nausea/Vomiting Last Admin: 06/04/17 20:44 Dose: 4 mg Sodium Chloride (Flush - Normal Saline) 10 ml IVF PRN PRN PRN Reason: Saline Flush Last Admin: 06/11/17 21:04 Dose: 10 ml Tamsulosin HCl (Flomax) 0.4 mg PO DAILY [facility] Last Admin: 06/16/17 09:50 Dose: 0.4 mg Thiamine HCl (Thiamine) 100 mg PO DAILY [facility] Last Admin: 06/16/17 09:51 Dose: 100 mg
[2017-06-17] MEDS: Amlodipine 10 MG TAB PO SCH (08:13)
[2017-06-17] MEDS: Famotidine 20 MG TAB PO SCH ×2 (08:14→20:48)
[2017-06-17] MEDS: Tamsulosin HCl 0.4 MG CAP PO SCH (08:14)
[2017-06-17] MEDS: Folic Acid 1 MG TAB PO SCH (08:14)
[2017-06-17] MEDS: levETIRAcetam 500 MG TAB PO SCH ×2 (08:14→20:48)
[2017-06-17] MEDS: Multivit, Therapeutic 1 TAB PO SCH (08:14)
--- NOTE | 2017-06-17 11:28 | PDOC.PN ---
- Subjective Encounter Start Date: 06/17/17 Encounter Start Time: 11:33 Mr. Diaz does not have any complaints. He continues to have weakness on the right side. He has been up with Physical Therapy. - Objective MAR Reviewed: Yes Vital Signs & Weight: Vital Signs (12 hours) Temp Pulse Resp BP BP Pulse Ox 06/17/17 08:13 58 L 133/78 06/17/17 08:00 98.6 F 58 L 16 133/78 97 06/17/17 04:00 98.3 F 57 L 18 125/79 98 06/17/17 00:00 98.1 F 60 16 121/85 97 Weight Admit Weight 194 lb 0.108 oz Weight 187 lb 7 oz Most Recent Monitor Data Heart Rate from ECG 107 NIBP 149/97 NIBP BP-Mean 120 Respiration from ECG 18 SpO2 99 I&O: 06/16/17 06/17/17 06/18/17 06:59 06:59 06:59 Intake Total 920 540 240 Balance 920 540 240 Result Diagrams: 06/14/17 11:08 06/14/17 11:08 Phys Exam - Physical Examination HEENT: PERRLA Respiratory: no wheezing, no rales, no rhonchi, clear to auscultation bilateral Cardiovascular: RRR, no significant murmur Gastrointestinal: soft, non-tender, positive bowel sounds Musculoskeletal: no edema Dx/Plan (1) Hypertension Code(s): I10 - ESSENTIAL (PRIMARY) HYPERTENSION Status: Acute (2) Acute intracerebral hemorrhage Code(s): I61.9 - NONTRAUMATIC INTRACEREBRAL HEMORRHAGE, UNSPECIFIED Status: Acute Comment: Patient is managed by Dr. Salmon from Neurosurgery, Repeat CT shows stable bleed (3) Alcohol abuse Code(s): F10.10 - ALCOHOL ABUSE, UNCOMPLICATED Status: Acute Comment: on Thiamine 100mg IV daily and folic acid 1 mg IV daily - Plan * Hypertension- blood pressure is stable * Seizure Prophylaxis with Keppra * ICH with right hemiplegia- continue PT/OT and [facility]hab under [facility].
[2017-06-18] MEDS: Tamsulosin HCl 0.4 MG CAP PO SCH (09:18)
[2017-06-18] MEDS: levETIRAcetam 500 MG TAB PO SCH ×2 (09:18→20:31)
[2017-06-18] MEDS: Famotidine 20 MG TAB PO SCH ×2 (09:18→20:31)
[2017-06-18] MEDS: Folic Acid 1 MG TAB PO SCH (09:19)
[2017-06-18] MEDS: Amlodipine 10 MG TAB PO SCH (09:19)
[2017-06-18] MEDS: Multivit, Therapeutic 1 TAB PO SCH (09:19)
--- NOTE | 2017-06-18 11:32 | PDOC.PN ---
- Subjective Encounter Start Date: 06/18/17 Encounter Start Time: 11:29 Mr. Diaz does not have any complaints today. He denies a headache or dizziness. - Objective MAR Reviewed: Yes Vital Signs & Weight: Vital Signs (12 hours) Temp Pulse Resp BP BP Pulse Ox 06/18/17 09:19 62 121/82 06/18/17 08:00 98.2 F 62 18 96 06/18/17 07:47 98.2 F 62 18 121/82 96 06/18/17 04:00 98.9 F 67 16 116/76 98 06/18/17 00:00 98.3 F 60 14 109/76 97 Weight Admit Weight 194 lb 0.108 oz Weight 185 lb 4.8 oz Most Recent Monitor Data Heart Rate from ECG 107 NIBP 149/97 NIBP BP-Mean 120 Respiration from ECG 18 SpO2 99 I&O: 06/17/17 06/18/17 06/19/17 06:59 06:59 06:59 Intake Total 540 1645 Balance 540 1645 Result Diagrams: 06/14/17 11:08 06/14/17 11:08 Phys Exam - Physical Examination HEENT: PERRLA Respiratory: no wheezing, no rales, no rhonchi, clear to auscultation bilateral Cardiovascular: RRR, no significant murmur, no rub Gastrointestinal: soft, non-tender, positive bowel sounds Musculoskeletal: no edema + right upper extremity paresis, right leg weakness Psychiatric: normal affect, A&O x 3 Dx/Plan (1) Hypertension Code(s): I10 - ESSENTIAL (PRIMARY) HYPERTENSION Status: Acute (2) Acute intracerebral hemorrhage Code(s): I61.9 - NONTRAUMATIC INTRACEREBRAL HEMORRHAGE, UNSPECIFIED Status: Acute Comment: Patient is managed by Dr. Salmon from Neurosurgery, Repeat CT shows stable bleed (3) Alcohol abuse Code(s): F10.10 - ALCOHOL ABUSE, UNCOMPLICATED Status: Acute Comment: on Thiamine 100mg IV daily and folic acid 1 mg IV daily - Plan * Acute ICH likely due to Hypertensive Urgency- patient has residual Right sided weakness * Continue PT/OT * HTN- blood pressure is better controlled * Awaiting [facility] placement.
[2017-06-19] MEDS: Amlodipine 10 MG TAB PO SCH (08:52)
[2017-06-19] MEDS: Folic Acid 1 MG TAB PO SCH (08:53)
[2017-06-19] MEDS: Tamsulosin HCl 0.4 MG CAP PO SCH (08:53)
[2017-06-19] MEDS: levETIRAcetam 500 MG TAB PO SCH ×2 (08:53→20:30)
[2017-06-19] MEDS: Famotidine 20 MG TAB PO SCH ×2 (08:53→20:31)
[2017-06-19] MEDS: Multivit, Therapeutic 1 TAB PO SCH (08:54)
--- NOTE | 2017-06-19 15:49 | PDOC.PN ---
- Subjective Encounter Start Date: 06/19/17 Encounter Start Time: 15:47 Mr. Diaz was seen today in follow-up. He does not have any complaints today. He denies headache, no dizziness ect. - Objective MAR Reviewed: Yes Vital Signs & Weight: Vital Signs (12 hours) Temp Pulse Resp BP BP Pulse Ox 06/19/17 15:29 99.1 F 65 16 109/73 96 06/19/17 11:12 99 F 62 18 112/73 97 06/19/17 08:52 64 114/71 06/19/17 08:00 98.6 F 64 20 100 06/19/17 07:58 98.6 F 64 18 114/71 100 06/19/17 03:54 98.0 F 61 18 110/68 97 Weight Admit Weight 194 lb 0.108 oz Weight 186 lb 4.8 oz Most Recent Monitor Data Heart Rate from ECG 107 NIBP 149/97 NIBP BP-Mean 120 Respiration from ECG 18 SpO2 99 I&O: 06/18/17 06/19/17 06/20/17 06:59 06:59 06:59 Intake Total 1645 1170 Balance 1645 1170 Result Diagrams: 06/14/17 11:08 06/14/17 11:08 Phys Exam - Physical Examination HEENT: PERRLA Respiratory: no wheezing, no rales, no rhonchi, clear to auscultation bilateral Cardiovascular: RRR, no significant murmur Gastrointestinal: soft, non-tender, positive bowel sounds Musculoskeletal: no edema + right upper extremity paresis Right lower extremity weakness Dx/Plan (1) Hypertension Code(s): I10 - ESSENTIAL (PRIMARY) HYPERTENSION Status: Acute (2) Acute intracerebral hemorrhage Code(s): I61.9 - NONTRAUMATIC INTRACEREBRAL HEMORRHAGE, UNSPECIFIED Status: Acute Comment: Patient is managed by Dr. Salmon from Neurosurgery, Repeat CT shows stable bleed (3) Alcohol abuse Code(s): F10.10 - ALCOHOL ABUSE, UNCOMPLICATED Status: Acute Comment: on Thiamine 100mg IV daily and folic acid 1 mg IV daily - Plan * Acute ICH, likely from hypertension- continue PT/OT for right sided weakness * HTN- blood pressure is now controlled * Awaiting Rehab/ Retirement transfer.
[2017-06-20] MEDS: Amlodipine 10 MG TAB PO SCH (08:34)
[2017-06-20] MEDS: Famotidine 20 MG TAB PO SCH ×2 (08:35→20:36)
[2017-06-20] MEDS: levETIRAcetam 500 MG TAB PO SCH ×2 (08:36→20:36)
[2017-06-20] MEDS: Multivit, Therapeutic 1 TAB PO SCH (08:36)
[2017-06-20] MEDS: Folic Acid 1 MG TAB PO SCH (08:36)
[2017-06-20] MEDS: Tamsulosin HCl 0.4 MG CAP PO SCH (08:37)
--- NOTE | 2017-06-20 08:49 | PDOC.PN ---
- Subjective Encounter Start Date: 06/20/17 Encounter Start Time: 08:47 Mr. Diaz was seen in follow-up. He does not have complaints. He denies chest pain. - Objective MAR Reviewed: Yes Vital Signs & Weight: Vital Signs (12 hours) Temp Pulse Resp BP BP Pulse Ox 06/20/17 08:34 70 133/81 06/20/17 07:42 98 F 70 16 133/81 98 06/20/17 04:32 98.5 F 72 16 135/89 98 06/19/17 23:54 98.9 F 62 18 116/75 98 Weight Admit Weight 194 lb 0.108 oz Weight 185 lb Most Recent Monitor Data Heart Rate from ECG 107 NIBP 149/97 NIBP BP-Mean 120 Respiration from ECG 18 SpO2 99 I&O: 06/19/17 06/20/17 06/21/17 06:59 06:59 06:59 Intake Total 1170 600 Balance 1170 600 Result Diagrams: 06/14/17 11:08 06/14/17 11:08 Phys Exam - Physical Examination HEENT: PERRLA Respiratory: no wheezing, no rales, no rhonchi, clear to auscultation bilateral Cardiovascular: RRR, no significant murmur Gastrointestinal: soft, non-tender, positive bowel sounds Musculoskeletal: no edema Dx/Plan (1) Hypertension Code(s): I10 - ESSENTIAL (PRIMARY) HYPERTENSION Status: Acute (2) Acute intracerebral hemorrhage Code(s): I61.9 - NONTRAUMATIC INTRACEREBRAL HEMORRHAGE, UNSPECIFIED Status: Acute Comment: Patient is managed by Dr. Salmon from Neurosurgery, Repeat CT shows stable bleed (3) Alcohol abuse Code(s): F10.10 - ALCOHOL ABUSE, UNCOMPLICATED Status: Acute Comment: on Thiamine 100mg IV daily and folic acid 1 mg IV daily - Plan * ICH- Unfortunately there is not a facility locally that can take him without funding. * HTN- blood pressure is controled * Will have to discharge him home in the care of his family.
--- NOTE | 2017-06-20 10:23 | DIS ---
DATE OF ADMISSION: 06/04/2017 DATE OF DISCHARGE: 06/20/2017 PRIMARY CARE PHYSICIAN: The patient does not have a primary care physician. DISCHARGE DISPOSITION: Home. DISCHARGE DIAGNOSES: 1. Acute intracranial hemorrhage, likely secondary to hypertension. 2. Hypertensive urgency. 3. History of alcoholism. 4. 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 DISCHARGE MEDICATIONS: Include thiamine 100 mg daily, Flomax 0.4 mg daily, Theragran 1 tablet daily, Keppra 500 mg twice a day, folic acid 1 mg daily, Pepcid 20 mg twice a day, docusate sodium 100 mg t wice a day, clonidine p.r.n., amlodipine 10 mg daily, Tylenol 650 mg as needed. PROCEDURES DONE DURING ADMISSION: The patient had multiple CT scans of the brain. The initial findi ng was a prominent size parenchymal hematoma of the left basal ganglia region. There was some slight rightward midline shift with some effacement of the left lateral ventricle. Followup CT scan showed stabilization of the lesion. CODE STATUS: FULL CODE. ALLERGIES: No known drug allergies. HOSPITAL COURSE: Mr. Diaz is a pleasant 52-year-old gentleman, who was found down at home by family members. He was brought to the hospital where he was found to have a right basal ganglia intracrani al hemorrhage. His blood pressure was also elevated at the time of admission as well. He has a hist ory of noncompliance with medications. It is suspected that the intracranial hemorrhage is a result of uncontrolled hypertension. He was seen by Neurosurgery, and it was felt that this was a nonsurgic al case. He was treated conservatively and attempts were made to try to find an inpatient rehabilita tion or long term facility for him to get physical therapy for the right hemiplegia that he suf fered as a result of the intracranial hemorrhage. He has basically complete paralysis of the right u pper extremity and some weakness of the right lower extremity. However, due to his unfunded status, the case management team was unable to locate a facility that can accommodate him. Therefore, we are forced to discharge him home in the care of his family and several messages have been left with the family to come up and watch physical therapy, so that they can know how to work with him at home. I also relayed this message to the patient myself and the plan for him is to be discharged home today. Outpatient followup has been arranged through case management and also medications have been supplie d to him through the [facility] as well as a cornelio-walker.
[2017-06-21] MEDS: Amlodipine 10 MG TAB PO SCH (08:49)
[2017-06-21] MEDS: Tamsulosin HCl 0.4 MG CAP PO SCH (08:50)
[2017-06-21] MEDS: Folic Acid 1 MG TAB PO SCH (08:50)
[2017-06-21] MEDS: Multivit, Therapeutic 1 TAB PO SCH (08:50)
[2017-06-21] MEDS: Famotidine 20 MG TAB PO SCH ×2 (08:50→20:40)
[2017-06-21] MEDS: levETIRAcetam 500 MG TAB PO SCH ×2 (08:50→20:40)
--- NOTE | 2017-06-21 11:01 | PDOC.EVN ---
Event Note - Event Note Event Note: Patient did not go home yesterday, as his family stated that they were not prepared to take him home. They felt rushed, and appealed to Hospital administration. The discharge has been placed on Hold, and our Case Management Team has placed referrals out to other facilities to see if they can accept Mr. Diaz.
--- NOTE | 2017-06-21 11:13 | PDOC.PN ---
- Subjective Encounter Start Date: 06/21/17 Encounter Start Time: 11:08 Mr. Diaz was seen in follow-up. He does not have any new complaints today. - Objective MAR Reviewed: Yes Vital Signs & Weight: Vital Signs (12 hours) Temp Pulse Resp BP BP Pulse Ox 06/21/17 08:49 58 L 127/80 06/21/17 07:33 98.6 F 58 L 20 127/80 97 06/21/17 04:00 98.1 F 58 L 16 108/70 97 06/21/17 00:00 98.9 F 62 16 117/78 99 Weight Admit Weight 194 lb 0.108 oz Weight 186 lb 1.6 oz Most Recent Monitor Data Heart Rate from ECG 107 NIBP 149/97 NIBP BP-Mean 120 Respiration from ECG 18 SpO2 99 I&O: 06/20/17 06/21/17 06/22/17 06:59 06:59 06:59 Intake Total 600 830 Balance 600 830 Result Diagrams: 06/14/17 11:08 06/14/17 11:08 Phys Exam - Physical Examination HEENT: PERRLA Respiratory: no wheezing, no rales, no rhonchi, clear to auscultation bilateral Cardiovascular: RRR, no significant murmur Gastrointestinal: soft, non-tender, positive bowel sounds Musculoskeletal: no edema + right upper extremity paresis Right leg weakness Dx/Plan (1) Hypertension Code(s): I10 - ESSENTIAL (PRIMARY) HYPERTENSION Status: Acute (2) Acute intracerebral hemorrhage Code(s): I61.9 - NONTRAUMATIC INTRACEREBRAL HEMORRHAGE, UNSPECIFIED Status: Acute Comment: Patient is managed by Dr. Salmon from Neurosurgery, Repeat CT shows stable bleed (3) Alcohol abuse Code(s): F10.10 - ALCOHOL ABUSE, UNCOMPLICATED Status: Acute Comment: on Thiamine 100mg IV daily and folic acid 1 mg IV daily - Plan * Acute ICH due to Hypertension- His blood pressure has improved * Continue PT/OT * Discharge was held yesterday * Referrals have been sent to attempt to find a Facility that will take him unfunded .
[2017-06-21 11:52] VITALS: BMI 25.9
[2017-06-22] MEDS: Famotidine 20 MG TAB PO SCH ×2 (09:09→21:26)
[2017-06-22] MEDS: Folic Acid 1 MG TAB PO SCH (09:09)
[2017-06-22] MEDS: Multivit, Therapeutic 1 TAB PO SCH (09:09)
[2017-06-22] MEDS: levETIRAcetam 500 MG TAB PO SCH ×2 (09:09→21:26)
[2017-06-22] MEDS: Tamsulosin HCl 0.4 MG CAP PO SCH (09:09)
--- NOTE | 2017-06-22 09:40 | PDOC.PN ---
- Subjective Encounter Start Date: 06/22/17 Encounter Start Time: 09:38 Subjective: nsg notes rev, fortino ovn, no new c/o - Objective Vital Signs & Weight: Vital Signs (12 hours) Temp Pulse Resp BP Pulse Ox 06/22/17 07:27 98.3 F 61 16 109/71 95 06/22/17 03:43 98.6 F 62 18 101/68 96 06/21/17 23:49 98.8 F 64 16 98/66 99 Weight Admit Weight 194 lb 0.108 oz Weight 186 lb 14.4 oz Most Recent Monitor Data Heart Rate from ECG 107 NIBP 149/97 NIBP BP-Mean 120 Respiration from ECG 18 SpO2 99 I&O: 06/21/17 06/22/17 06/23/17 06:59 06:59 06:59 Intake Total 830 940 Balance 830 940 Result Diagrams: 06/14/17 11:08 06/14/17 11:08 Phys Exam - Physical Examination Constitutional: NAD HEENT: PERRLA, moist MMs Neck: no JVD Respiratory: no wheezing, no rales, no rhonchi, clear to auscultation bilateral Cardiovascular: RRR, no significant murmur, no rub Gastrointestinal: soft, non-tender, no distention, positive bowel sounds Musculoskeletal: no edema, pulses present Psychiatric: normal affect, A&O x 3 Dx/Plan (1) Acute intracerebral hemorrhage Code(s): I61.9 - NONTRAUMATIC INTRACEREBRAL HEMORRHAGE, UNSPECIFIED Status: Acute Comment: Patient is managed by Dr. Salmon from Neurosurgery, Repeat CT shows stable bleed (2) Hypertension Code(s): I10 - ESSENTIAL (PRIMARY) HYPERTENSION Status: Acute (3) Seizure in response to acute event Code(s): R56.9 - UNSPECIFIED CONVULSIONS Status: Acute Comment: Patient seizure is from bleed, will Started Prophylactic Kepra 500mg BID, and [facility] Neurology. seizure likely from Bleed or He could have withdrawl seizures from Alchol. pt on Ativan for seizures. (4) Uncontrolled hypertension Code(s): I10 - ESSENTIAL (PRIMARY) HYPERTENSION Status: Acute Comment: Off of Nicardipine drip.PRN labetalol.Norvasc started - Plan cont current plan of care, PT/OT * Patient presented with intraparenchymal bleed and resultant seizure, encephalopathy * currently mentation stable, working and participating with PT * continue assessing for discharge vs placement for rehab diet: as jaquan activity: as jaquan, PT Review of Systems - Medications/Allergies Allergies/Adverse Reactions: Allergies Allergy/AdvReac Type Severity Reaction Status Date / Time No Known Allergies Allergy Verified 06/11/17 18:35 Medications: Current Medications Acetaminophen (Tylenol) 650 mg [place] Q4H PRN PRN Reason: Headache/Fever or Pain Last Admin: 06/04/17 22:45 Dose: 650 mg Amlodipine Besylate (Norvasc) 10 mg PO DAILY [facility] Last Admin: 06/21/17 08:49 Dose: 10 mg Clonidine (Catapres) 0.1 mg PO Q4H PRN PRN Reason: Systolic BP > 180 Famotidine (Pepcid) 20 mg PO BID [facility] Last Admin: 06/22/17 09:09 Dose: 20 mg Folic Acid (Folvite) 1 mg PO DAILY [facility] Last Admin: 06/22/17 09:09 Dose: 1 mg Labetalol HCl (Normodyne) 10 mg SLOW IVP Q2H PRN PRN Reason: SBP > 150 or DBP > 90 Last Admin: 06/09/17 21:22 Dose: 10 mg Levetiracetam (Keppra) 500 mg PO BID [facility] Last Admin: 06/22/17 09:09 Dose: 500 mg Multivitamins (Theragran) 1 tab PO DAILY [facility] Last Admin: 06/22/17 09:09 Dose: 1 tab Ondansetron HCl (Zofran) 4 mg IVP BIDPRN PRN PRN Reason: Nausea/Vomiting Last Admin: 06/04/17 20:44 Dose: 4 mg Sodium Chloride (Flush - Normal Saline) 10 ml IVF PRN PRN PRN Reason: Saline Flush Last Admin: 06/11/17 21:04 Dose: 10 ml Tamsulosin HCl (Flomax) 0.4 mg PO DAILY [facility] Last Admin: 06/22/17 09:09 Dose: 0.4 mg Thiamine HCl (Thiamine) 100 mg PO DAILY [facility] Last Admin: 06/22/17 09:09 Dose: 100 mg
[2017-06-22] MEDS: Amlodipine 10 MG TAB PO SCH (17:58)
[2017-06-23] MEDS: Multivit, Therapeutic 1 TAB PO SCH (08:51)
[2017-06-23] MEDS: Folic Acid 1 MG TAB PO SCH (08:51)
[2017-06-23] MEDS: Tamsulosin HCl 0.4 MG CAP PO SCH (08:51)
[2017-06-23] MEDS: Amlodipine 10 MG TAB PO SCH (08:51)
[2017-06-23] MEDS: levETIRAcetam 500 MG TAB PO SCH ×2 (08:51→20:55)
[2017-06-23] MEDS: Famotidine 20 MG TAB PO SCH ×2 (08:51→20:55)
--- NOTE | 2017-06-23 13:35 | PDOC.PN ---
- Subjective Encounter Start Date: 06/23/17 Encounter Start Time: 13:34 Subjective: nsg notes rev, fell yday, no pain today, recalls falling on his R side - Objective Vital Signs & Weight: Vital Signs (12 hours) Temp Pulse Pulse Resp BP BP BP 06/23/17 12:00 98.8 F 67 16 98/63 06/23/17 10:41 65 105/67 06/23/17 08:51 81 111/72 06/23/17 08:00 98.5 F 81 22 H 111/72 06/23/17 04:00 98.2 F 55 L 16 154/90 H Pulse Ox 06/23/17 12:00 95 06/23/17 10:41 06/23/17 08:51 06/23/17 08:00 100 06/23/17 04:00 100 Weight Admit Weight 194 lb 0.108 oz Weight 189 lb 12.8 oz Most Recent Monitor Data Heart Rate from ECG 107 NIBP 149/97 NIBP BP-Mean 120 Respiration from ECG 18 SpO2 99 I&O: 06/22/17 06/23/17 06/24/17 06:59 06:59 06:59 Intake Total 940 960 Balance 940 960 Result Diagrams: 06/14/17 11:08 06/14/17 11:08 Phys Exam - Physical Examination Constitutional: NAD HEENT: PERRLA, moist MMs Neck: no nodes, no JVD Respiratory: no wheezing, no rales, no rhonchi, clear to auscultation bilateral Cardiovascular: RRR, no significant murmur, no rub Gastrointestinal: soft, non-tender, no distention, positive bowel sounds Musculoskeletal: no edema, pulses present Psychiatric: normal affect, A&O x 3 Dx/Plan (1) Acute intracerebral hemorrhage Code(s): I61.9 - NONTRAUMATIC INTRACEREBRAL HEMORRHAGE, UNSPECIFIED Status: Acute Comment: Patient is managed by Dr. Salmon from Neurosurgery, Repeat CT shows stable bleed (2) Hypertension Code(s): I10 - ESSENTIAL (PRIMARY) HYPERTENSION Status: Acute (3) Seizure in response to acute event Code(s): R56.9 - UNSPECIFIED CONVULSIONS Status: Acute Comment: Patient seizure is from bleed, will Started Prophylactic Kepra 500mg BID, and [facility] Neurology. seizure likely from Bleed or He could have withdrawl seizures from Alchol. pt on Ativan for seizures. (4) Uncontrolled hypertension Code(s): I10 - ESSENTIAL (PRIMARY) HYPERTENSION Status: Acute Comment: Off of Nicardipine drip.PRN labetalol.Norvasc started - Plan cont current plan of care, PT/OT * Patient presented with intraparenchymal bleed and resultant seizure, encephalopathy * currently mentation stable, working and participating with PT * continue assessing for discharge vs placement for rehab diet: as jaquan activity: as jaquan, PT Review of Systems - Medications/Allergies Allergies/Adverse Reactions: Allergies Allergy/AdvReac Type Severity Reaction Status Date / Time No Known Allergies Allergy Verified 06/11/17 18:35 Medications: Current Medications Acetaminophen (Tylenol) 650 mg [place] Q4H PRN PRN Reason: Headache/Fever or Pain Last Admin: 06/04/17 22:45 Dose: 650 mg Amlodipine Besylate (Norvasc) 10 mg PO DAILY [facility] Last Admin: 06/23/17 08:51 Dose: 10 mg Clonidine (Catapres) 0.1 mg PO Q4H PRN PRN Reason: Systolic BP > 180 Famotidine (Pepcid) 20 mg PO BID [facility] Last Admin: 06/23/17 08:51 Dose: 20 mg Folic Acid (Folvite) 1 mg PO DAILY [facility] Last Admin: 06/23/17 08:51 Dose: 1 mg Labetalol HCl (Normodyne) 10 mg SLOW IVP Q2H PRN PRN Reason: SBP > 150 or DBP > 90 Last Admin: 06/09/17 21:22 Dose: 10 mg Levetiracetam (Keppra) 500 mg PO BID [facility] Last Admin: 06/23/17 08:51 Dose: 500 mg Multivitamins (Theragran) 1 tab PO DAILY [facility] Last Admin: 06/23/17 08:51 Dose: 1 tab Ondansetron HCl (Zofran) 4 mg IVP BIDPRN PRN PRN Reason: Nausea/Vomiting Last Admin: 06/04/17 20:44 Dose: 4 mg Sodium Chloride (Flush - Normal Saline) 10 ml IVF PRN PRN PRN Reason: Saline Flush Last Admin: 06/11/17 21:04 Dose: 10 ml Tamsulosin HCl (Flomax) 0.4 mg PO DAILY [facility] Last Admin: 06/23/17 08:51 Dose: 0.4 mg Thiamine HCl (Thiamine) 100 mg PO DAILY [facility] Last Admin: 06/23/17 08:51 Dose: 100 mg
--- NOTE | 2017-06-23 14:43 | EKG ---
Test Reason : Blood Pressure : / mmHG Vent. Rate : 114 BPM Atrial Rate : 114 BPM P-R Int : 132 ms QRS Dur : 084 ms QT Int : 346 ms P-R-T Axes : 050 -04 005 degrees QTc Int : 476 ms Sinus tachycardia Possible Left atrial enlargement Borderline ECG Confirmed by ACACIA KRAUS DO ([id number]), fashion editor ELIAZAR CRENSHAW ([id number]) on 06/23/2017 2:43:39 PM Referred By: Confirmed By:ACACIA KRAUS DO
--- NOTE | 2017-06-23 22:41 | PDOC.PN ---
- Subjective Encounter Start Date: 06/23/17 Encounter Start Time: 14:00 Subjective: nsg notes rev, mechanical fall yday. no pain today, no swelling, no -: tenderness. no new c/o - Objective Vital Signs & Weight: Vital Signs (12 hours) Temp Pulse Pulse Resp BP BP Pulse Ox 06/23/17 20:00 98.4 F 73 18 101/65 96 06/23/17 15:46 98.6 F 80 20 128/77 100 06/23/17 12:00 98.8 F 67 16 98/63 95 06/23/17 10:41 65 105/67 Weight Admit Weight 194 lb 0.108 oz Weight 189 lb 12.8 oz Most Recent Monitor Data Heart Rate from ECG 107 NIBP 149/97 NIBP BP-Mean 120 Respiration from ECG 18 SpO2 99 I&O: 06/22/17 06/23/17 06/24/17 06:59 06:59 06:59 Intake Total 940 960 Balance 940 960 Result Diagrams: 06/14/17 11:08 06/14/17 11:08 Phys Exam - Physical Examination Constitutional: NAD HEENT: PERRLA, moist MMs Respiratory: no wheezing, no rales, no rhonchi, clear to auscultation bilateral Cardiovascular: RRR, no significant murmur, no rub Gastrointestinal: soft, non-tender, no distention, positive bowel sounds Musculoskeletal: no edema, pulses present Psychiatric: normal affect, A&O x 3 Dx/Plan (1) Acute intracerebral hemorrhage Code(s): I61.9 - NONTRAUMATIC INTRACEREBRAL HEMORRHAGE, UNSPECIFIED Status: Acute Comment: Patient is managed by Dr. Salmon from Neurosurgery, Repeat CT shows stable bleed (2) Hypertension Code(s): I10 - ESSENTIAL (PRIMARY) HYPERTENSION Status: Acute (3) Seizure in response to acute event Code(s): R56.9 - UNSPECIFIED CONVULSIONS Status: Acute Comment: Patient seizure is from bleed, will Started Prophylactic Kepra 500mg BID, and [facility] Neurology. seizure likely from Bleed or He could have withdrawl seizures from Alchol. pt on Ativan for seizures. (4) Uncontrolled hypertension Code(s): I10 - ESSENTIAL (PRIMARY) HYPERTENSION Status: Acute Comment: Off of Nicardipine drip.PRN labetalol.Norvasc started - Plan cont current plan of care * cont current plan of care, PT/OT * Patient presented with intraparenchymal bleed and resultant seizure, encephalopathy * currently mentation stable, working and participating with PT * stable cognitively and physically s/p mechanical fall 2/2, continue serial neurological checks diet: as jaquan activity: as jaquan, PT Review of Systems - Medications/Allergies Allergies/Adverse Reactions: Allergies Allergy/AdvReac Type Severity Reaction Status Date / Time No Known Allergies Allergy Verified 06/11/17 18:35 Medications: Current Medications Acetaminophen (Tylenol) 650 mg [place] Q4H PRN PRN Reason: Headache/Fever or Pain Last Admin: 06/04/17 22:45 Dose: 650 mg Amlodipine Besylate (Norvasc) 10 mg PO DAILY [facility] Last Admin: 06/23/17 08:51 Dose: 10 mg Clonidine (Catapres) 0.1 mg PO Q4H PRN PRN Reason: Systolic BP > 180 Famotidine (Pepcid) 20 mg PO BID [facility] Last Admin: 06/23/17 20:55 Dose: 20 mg Folic Acid (Folvite) 1 mg PO DAILY [facility] Last Admin: 06/23/17 08:51 Dose: 1 mg Labetalol HCl (Normodyne) 10 mg SLOW IVP Q2H PRN PRN Reason: SBP > 150 or DBP > 90 Last Admin: 06/09/17 21:22 Dose: 10 mg Levetiracetam (Keppra) 500 mg PO BID [facility] Last Admin: 06/23/17 20:55 Dose: 500 mg Multivitamins (Theragran) 1 tab PO DAILY [facility] Last Admin: 06/23/17 08:51 Dose: 1 tab Ondansetron HCl (Zofran) 4 mg IVP BIDPRN PRN PRN Reason: Nausea/Vomiting Last Admin: 06/04/17 20:44 Dose: 4 mg Sodium Chloride (Flush - Normal Saline) 10 ml IVF PRN PRN PRN Reason: Saline Flush Last Admin: 06/11/17 21:04 Dose: 10 ml Tamsulosin HCl (Flomax) 0.4 mg PO DAILY [facility] Last Admin: 06/23/17 08:51 Dose: 0.4 mg Thiamine HCl (Thiamine) 100 mg PO DAILY [facility] Last Admin: 06/23/17 08:51 Dose: 100 mg
[2017-06-24] MEDS: Tamsulosin HCl 0.4 MG CAP PO SCH (08:55)
[2017-06-24] MEDS: Amlodipine 10 MG TAB PO SCH (08:55)
[2017-06-24] MEDS: levETIRAcetam 500 MG TAB PO SCH ×2 (08:55→21:31)
[2017-06-24] MEDS: Multivit, Therapeutic 1 TAB PO SCH (08:55)
[2017-06-24] MEDS: Folic Acid 1 MG TAB PO SCH (08:55)
[2017-06-24] MEDS: Famotidine 20 MG TAB PO SCH ×2 (08:55→21:31)
--- NOTE | 2017-06-24 21:35 | PDOC.PN ---
- Subjective Encounter Start Date: 06/24/17 Encounter Start Time: 21:35 Subjective: nsg notes rev, no new issues noted - Objective Vital Signs & Weight: Vital Signs (12 hours) Temp Pulse Resp BP Pulse Ox 06/24/17 16:00 98.8 F 75 16 109/68 99 06/24/17 14:45 98.8 F 61 18 132/77 99 Weight Admit Weight 194 lb 0.108 oz Weight 192 lb 1.6 oz Most Recent Monitor Data Heart Rate from ECG 107 NIBP 149/97 NIBP BP-Mean 120 Respiration from ECG 18 SpO2 99 I&O: 06/23/17 06/24/17 06/25/17 06:59 06:59 06:59 Intake Total 960 720 700 Balance 960 720 700 Result Diagrams: 06/14/17 11:08 06/14/17 11:08 Dx/Plan (1) Acute intracerebral hemorrhage Code(s): I61.9 - NONTRAUMATIC INTRACEREBRAL HEMORRHAGE, UNSPECIFIED Status: Acute Comment: Patient is managed by Dr. Salmon from Neurosurgery, Repeat CT shows stable bleed (2) Hypertension Code(s): I10 - ESSENTIAL (PRIMARY) HYPERTENSION Status: Acute (3) Seizure in response to acute event Code(s): R56.9 - UNSPECIFIED CONVULSIONS Status: Acute Comment: Patient seizure is from bleed, will Started Prophylactic Kepra 500mg BID, and [facility] Consulting Neurology. seizure likely from Bleed or He could have withdrawl seizures from Alchol. pt on Ativan for seizures. (4) Uncontrolled hypertension Code(s): I10 - ESSENTIAL (PRIMARY) HYPERTENSION Status: Acute Comment: Off of Nicardipine drip.PRN labetalol.Norvasc started - Plan cont current plan of care, PT/OT, social service agency director * .
[2017-06-25] MEDS: Amlodipine 10 MG TAB PO SCH (08:08)
[2017-06-25] MEDS: levETIRAcetam 500 MG TAB PO SCH (08:11)
[2017-06-25] MEDS: Multivit, Therapeutic 1 TAB PO SCH (08:11)
[2017-06-25] MEDS: Famotidine 20 MG TAB PO SCH (08:11)
[2017-06-25] MEDS: Folic Acid 1 MG TAB PO SCH (08:11)
[2017-06-25] MEDS: Tamsulosin HCl 0.4 MG CAP PO SCH (08:12)
[2017-06-25 15:52] VITALS: BP 111/76; TEMP 99.1
== END 2017-06-25 18:29 | disposition home health service (06) | DRG 64 ==
LOC: ERS 16:43 → EDBD 16:43 → CCU 19:32 → EEVIPCON 19:32 → 2SE 06-05 18:19
PROVIDERS: ADMIT Neurological Surgery; ATTEND Neurological Surgery
DX: I61.9 Nontraumatic intracerebral hemorrhage, unspecified (principal); G93.49 Other encephalopathy; R47.01 Aphasia; G81.01 Flaccid hemiplegia affecting right dominant side; R56.9 Unspecified convulsions; F10.20 Alcohol dependence, uncomplicated; I10 Essential (primary) hypertension; I16.0 Hypertensive urgency; Z91.19 Patient's noncompliance with other medical treatment and regimen; R32 Unspecified urinary incontinence; R31.29 Other microscopic hematuria; E87.6 Hypokalemia
CPT/HCPCS: 36415; 70450; 71045; 80048; 80053; 80307; 81001; 81003; 81015; 82553; 83605; 83735; 84100; 84132; 84443; 84484; 85025; 85610; 85730; 87040; 87086; 93005; 96365; 96375; A4216; G8978-GP-CL; G8978-GP-CM; G8979-GP-CK; G8987-GO-CM; G8988-GO-CK; G8996-GN-CK; G8997-GN-CJ; G9162-GN-CM; G9163-GN-CL; J0696; J1953; J2060; J2405; J3411; J3480; J7050; S0028